=== PATIENT | male | born 1945 | race Caucasian/White ===

== ENCOUNTER 2019-09-17 21:46 | Emergency (ER) | payer OTHER, SELFPAY ==
--- NOTE | ~2019-09-17 | CT_ITS ---
EXAMINATION: CT brain wo con, CT cervical spine wo con EXAM DATE: 09/17/2019 22:15 (accession [id number]), 09/17/2019 22:16 (accession [id number]) INDICATION: Fall, loss of consciousness. Head injury. TECHNIQUE: Spiral CT of the head was performed without contrast. Axial, coronal and sagittal images were reviewed. Spiral CT of the cervical spine was performed without contrast. Axial images were rev iewed. Coronal and sagittal reformatted images were also reviewed. The dose-length product (DLP) fo r this examination was 681.00 (accession [id number]), 525.13 (accession [id number]) mGy-cm. The exposure was tailored according to patient size, and iterative reconstruction (ASIR) was used as additional dose reduction technique. There is no prior study for comparison. FINDINGS: HEAD CT: There is small acute subarachnoid hemorrhage overlying the right frontal lobe near the verte x. No other regions of acute intracranial hemorrhage. No evidence of intraparenchymal brain mass le eric. No evidence of acute infarction. There is no mass effect or midline shift. There is no obstruc tive hydrocephalus suspected. There are no extra-axial collections. There are no acute calvarial fr actures. The orbits are unremarkable. Small scalp contusion overlying the right parietal region. Th ere is moderate ethmoid periosteal thickening and probable bilateral maxillary sinus window procedure . Mastoid air cells are well aerated. CERVICAL CT: There is moderate disc disease at C5-6 and C6-7. Overall moderate cervical arthropathy. There is no evidence of acute cervical fracture. The odontoid process is intact. Pre-dens space is normal. Prevertebral soft tissue is normal. There are no soft tissue abnormalities identified. The re is no disc space widening or traumatic vertebral body subluxation suspected. A detailed level by yenny ng evaluation of spondylosis can be added as addendum if requested. IMPRESSION: 1. Small acute right frontal subarachnoid hemorrhage. 2. Small right posterior scalp contusion. 3. No acute cervical findings. Reviewed, dictated and finalized at location A. IMPRESSION: 1. Small acute right frontal subarachnoid hemorrhage. 2. Small right posterior scalp contusion. 3. No acute cervical findings.
[2019-09-17 21:44] VITALS: BP 129/76; PULSE 72; RESP 18; O2SAT 95
[2019-09-17 22:00] VITALS: BP 129/76; PULSE 75; RESP 20; O2SAT 96
[2019-09-17 22:30] VITALS: BP 120/63; PULSE 71; RESP 18; O2SAT 97
--- NOTE | 2019-09-17 22:36 | ED.FALL ---
HPI - Fall General Chief Complaint: Fall Stated Complaint: fall Time Seen by Provider: 09/17/19 21:57 History of Present Illness HPI Narrative: Patient presents with his for fall backwards. He was getting up out of his chair and fell backwards either against the door or to the wooden floor. He bumped the back of his head. She said he had a momentary loss of consciousness. He is fully oriented here. He complains of no pain. The fall was at 8 PM, at home. complaint: fall Onset (ago): hour(s) Fall from: standing Fall witnessed: no Place fall occurred: home Loss of consciousness: yes Length of LOC: second(s) Prolonged down time: no Symptoms prior to fall: none Context: history of frequent falls Location of injury: head Location of injury - extremities: Left: arm Related Data Home Medications Medication Instructions Recorded Confirmed apixaban [Eliquis] 5 mg PO BID 01/30/19 carvedilol 6.25 mg PO BID 01/30/19 clopidogrel 75 mg PO DAILY 01/30/19 escitalopram oxalate 10 mg PO DAILY 01/30/19 lisinopril 5 mg PO DAILY 01/30/19 simvastatin 40 mg PO DAILY 01/30/19 omeprazole 20 mg PO DAILY 09/17/19 tamsulosin 0.4 mg PO DAILY 09/17/19 Allergies Allergy/AdvReac Type Severity Reaction Status Date / Time amoxicillin Allergy Mild Rash Verified 01/30/19 16:19 Review of Systems Review of Systems: Narrative: CONSTITUTIONAL: Denies fever, chills, or sweats. EYES: Denies visual changes, redness, or discharge. ENT: Denies rhinorrhea, congestion, sore throat, or otalgia. CARDIOVASCULAR: Denies chest pain, palpitations, or edema. RESPIRATORY: Denies cough or dyspnea. GASTROINTESTINAL: Denies abdominal pain, nausea, vomiting, or diarrhea. GENITOURINARY: Denies dysuria or hematuria. SKIN: Denies rash or itching. MUSCULOSKELETAL: Denies back pain, he does have some left arm. NEUROLOGIC: Denies headache, numbness, or weakness. PSYCHIATRIC: Denies anxiety or depression. [facility] Past Medical History Medical History Afib Arm fracture, left Arthritis CAD (coronary artery disease) History of angina HTN (hypertension) Hyperlipidemia Rectal polyp Rib fracture Stomach ulcer UTI (urinary tract infection) Surgical History Surgical History History of cardiac catheterization History of sinus surgery Hx of CABG Social History Social History Smoking status: Former smoker Smoking end date: 02/11/96 Exam Narrative: Exam Narrative: GENERAL: Well-appearing, well-nourished, and in no acute distress. HEAD: Normocephalic, swelling on the posterior head. EYES: PERRLA and EOMI. ENT: Nares clear, no rhinorrhea or epistaxis. Mucous membranes moist. NECK: Supple. CHEST: Clear to auscultation. No respiratory distress. HEART: Regular rate and rhythm. No murmur heard. Normal peripheral pulses. ABDOMEN: Soft, nontender, nondistended, normal active bowel sounds. EXTREMITIES: Normal range of motion. No edema. 2 small bruises on the left upper inner arm. SKIN: Warm, dry, no rash. NEURO: No focal deficits. Alert and oriented x3. PSYCH: Normal mood and affect. Course Reevaluation(s) Reevaluation #1: Went back in the room to explain the subarachnoid hemorrhage to the patient and his . He is on 2 blood thinners Eliquis and Plavix. I explained the reason for giving the plasma to replace the proteins needed to stop bleeding. They agree to the transfusion. Date: 09/17/19 Time: 23:05 Consultations Consultation #1: Call the access line for [facility]. Millie will get back with us with a neurosurgeon or direct to the ER. Date: 09/17/19 Time: 22:53 Consultation #2: Millie from the [facility] access center called back. She said Dr. Carlos Marcano accepts for the ED. we will get the transportation arranged and get him over. Date: 09/18/19 Time: 00:22 Vital Signs Vital signs: Vital Signs
[2019-09-17 22:48] LABS: Basophils Percent Auto 0.6 % (0.2-1.2); Eosinophils Absolute Auto 0.2 K/mm3 (0-0.3); Eosinophils Percent Auto 3.2 % (0-4.4); Hematocrit 37.2 % (42.0-52.0); Hemoglobin 12.7 g/dL (14.0-18.0); Immature Granulocyte Absolute 0.02 K/mm3 (0.00-0.031); Immature Granulocyte Percent A 0.4 % (0-0.5); Lymphocytes Absolute Auto 1.28 K/mm3 (0.9-3.2); Mean Corpuscular HGB Conc 34.1 g/dl (32-36); Mean Corpuscular Hemoglobin 31.3 pg (26-34); Mean Corpuscular Volume 91.6 fl (80-100); Mean Platelet Volume 10.2 fl (7.4-10.4); Monocytes Absolute Auto 0.6 K/mm3 (0.1-0.6); Monocytes Percent Auto 13.1 % (2.6-8.5); Neutrophils Absolute Auto 2.6 K/mm3 (1.3-6.7); Neutrophils Percent Auto 55.7 % (45.5-73.1); Platelet Count Result 162 k/mm3 (150-375); Red Blood Count 4.06 M/mm3 (4.6-6.20); Red Cell Distribution Width 12.5 % (11.5-14.5); White Blood Count 4.7 K/mm3 (4.5-10.0)
[2019-09-17 22:58] LABS: INR 1.3; Prothrombin Time 16.2 Seconds (11.1-14.7)
[2019-09-17 23:00] VITALS: BP 119/56; PULSE 64; RESP 16; O2SAT 95
[2019-09-17 23:01] LABS: Alanine Aminotransferase 18 U/L (4-50); Albumin Level 3.9 g/dL (3.5-5.1); Alkaline Phosphatase 55 U/L (38-126); Anion Gap 11 mmol/L (8-16); Aspartate Amino Transferase 27 U/L (17-59); Bilirubin,Total 0.4 mg/dL (0.2-1.3); Blood Urea Nitrogen 12 mg/dL (9-20); Calcium 9.1 mg/dL (8.4-10.2); Carbon Dioxide 21 mmol/L (22-30); Chloride 107 mmol/L (98-107); Estimated Glomerular Filt Rate > 60; Glucose 140 mg/dL (75-110); Potassium 3.6 mmol/L (3.4-5.0); Sodium 139 mmol/L (137-145)
[2019-09-17 23:30] VITALS: BP 111/50; PULSE 63; RESP 16; O2SAT 95
[2019-09-17] MEDS: SODIUM CHLORIDE 0.9% IV 250 ML 30 ML IV CONT (23:57)
[2019-09-18] VITALS: BP 105/51; PULSE 63; RESP 16; O2SAT 96
[2019-09-18 00:30] VITALS: BP 102/52; PULSE 61; RESP 15; O2SAT 95
[2019-09-18 02:37] VITALS: BP 133/67; PULSE 53; RESP 14; TEMP 36.5; O2SAT 99
[2019-09-18] MEDS: TUBING, BLOOD SET 1 EACH XX (02:40)
[2019-09-18 02:59] VITALS: BP 123/56; PULSE 59; RESP 15; TEMP 36.6; O2SAT 98
[2019-09-18 03:15] VITALS: BP 136/56; PULSE 55; RESP 15; TEMP 36.6; O2SAT 98
== END 2019-09-18 03:35 | disposition short-term general hospital (02) ==
PROVIDERS: Emergency Provider Emergency Medicine; PCP Family Medicine
DX: S06.6X1A Traumatic subarachnoid hemorrhage with loss of consciousness of 30 minutes or less, initial encounter (principal); I48.91 Unspecified atrial fibrillation; Z79.01 Long term (current) use of anticoagulants; M19.90 Unspecified osteoarthritis, unspecified site; I25.10 Atherosclerotic heart disease of native coronary artery without angina pectoris; I10 Essential (primary) hypertension; E78.5 Hyperlipidemia, unspecified; Z87.19 Personal history of other diseases of the digestive system; Z87.440 Personal history of urinary (tract) infections; Z95.1 Presence of aortocoronary bypass graft; Z87.891 Personal history of nicotine dependence; Z79.02 Long term (current) use of antithrombotics/antiplatelets; W07.XXXA Fall from chair, initial encounter
CPT/HCPCS: 36415; 36430; 70450; 72125; 80053; 85025; 85610; 86850; 86900; 86901; 96360; 96361; 99291; J0153; J7050; L0140; P9017

== ENCOUNTER 2020-07-20 08:48 | Emergency (ER) | payer OTHER, SELFPAY ==
[2020-07-20 08:58] VITALS: BP 146/62; PULSE 61; RESP 16; TEMP 36.6; O2SAT 99
--- NOTE | 2020-07-20 09:04 | ED.EAR ---
HPI - Ear Problem General Chief complaint: Ear Stated complaint: ear clogged Time Seen by Provider: 07/20/20 09:00 Source: patient Mode of arrival: ambulatory Limitations: no limitations History of Present Illness HPI Narrative: Álvaro Cedeno is a74 yo male with a PMH of hypertension, A. fib, chronic anticoagulation, depression, GERD, high cholesterol, BHP, comes to the [facility] is complaining of difficulty hearing. He has old wax in both ears that he ihas not tried to remove nor has he used any kind of eardrops to loosen wax up. Related Data Home Medications Medication Instructions Recorded Confirmed apixaban [Eliquis] 10 mg PO DAILY 07/20/20 07/20/20 carvedilol [Coreg] 12.5 mg PO DAILY 07/20/20 07/20/20 clopidogrel [Plavix] 75 mg PO DAILY 07/20/20 07/20/20 escitalopram oxalate [Lexapro] 10 mg PO DAILY 07/20/20 07/20/20 lisinopril [Zestril] 5 mg PO DAILY 07/20/20 07/20/20 omeprazole [Prilosec] 20 mg PO DAILY 07/20/20 07/20/20 simvastatin [Zocor] 40 mg PO DAILY 07/20/20 07/20/20 tamsulosin [Flomax] 0.4 mg PO DAILY 07/20/20 07/20/20 Allergies Allergy/AdvReac Type Severity Reaction Status Date / Time amoxicillin Allergy Mild Rash Verified 07/20/20 09:10 Review of Systems Review of Systems: Narrative: CONSTITUTIONAL: Denies fever, chills, sweats. EYES: Denies visual changes, redness, discharge. ENT: Denies rhinorrhea, congestion, sore throat, bilateral difficulty hearing CARDIOVASCULAR: Denies chest pain, palpitations, edema. RESPIRATORY: Denies dyspnea, wheezing, cough GASTROINTESTINAL: Denies abdominal pain, nausea, vomiting, diarrhea. GENITOURINARY: Denies dysuria, hematuria, abnormal discharge SKIN: Denies rash or itching. NEUROLOGIC: Denies numbness, or focal weakness. PSYCHIATRIC: Denies anxiety or depression. [facility] Past Medical History Medical History Afib Arm fracture, left Arthritis CAD (coronary artery disease) History of angina HTN (hypertension) Hyperlipidemia Rectal polyp Rib fracture Stomach ulcer UTI (urinary tract infection) Surgical History Surgical History History of cardiac catheterization History of sinus surgery Hx of CABG Family History Family History Mother Heart disease Father COPD (chronic obstructive pulmonary disease) Sibling Cancer Sibling Heart disease Sibling COPD (chronic obstructive pulmonary disease) Social History Social History Smoking status: Former smoker Smoking end date: 02/11/96 Alcohol intake: current Drinks per week: 3 Substance use: never Gender identity (if verbalized by the patient): Male Comments At time of signature, I agree with nursing past medical, surgical, social and family history. There is no relevant family history pertinent to the presenting complaint. Exam Narrative: Exam Narrative: GENERAL: This is a well-nourished, well-developed patient, in mild distress. HEAD: normocephalic, atraumatic. EYES: Sclera clear/white. Vision is grossly intact. EARS: External ears normal, auditory canals occluded with cerumen and without drainage, TMs not visible. Hearing grossly intact. NOSE: External nose normal without nasal discharge, nares without redness, no rhinorrhea. THROAT: Mucous membranes moist, NECK: Neck supple, non-tender CARDIOVASCULAR: Regular rate and rhythm without murmurs, gallops, or rubs. RESPIRATORY: Clear to auscultation. Breath sounds equal bilaterally. No wheezes, rales, or rhonchi. GASTROINTESTINAL: Abdomen soft, SKIN: warm, intact with no suspicious lesions or rash, good texture and turgor. NEURO: awake, alert, and oriented to person, place and time. There were no obvious focal neurologic abnormalities. Steady gait EXTREMITIES: Normal range
== END 2020-07-20 09:48 | disposition home or self-care (01) ==
PROVIDERS: Emergency Provider Nurse Practitioner
DX: H61.23 Impacted cerumen, bilateral (principal); Z87.891 Personal history of nicotine dependence; I48.91 Unspecified atrial fibrillation; M19.90 Unspecified osteoarthritis, unspecified site; I10 Essential (primary) hypertension; E78.5 Hyperlipidemia, unspecified; I25.110 Atherosclerotic heart disease of native coronary artery with unstable angina pectoris; Z95.1 Presence of aortocoronary bypass graft
CPT/HCPCS: 69209; 99213; A9270; G0463

== ENCOUNTER 2020-07-22 15:11 | Emergency (ER) | payer OTHER, SELFPAY ==
[2020-07-22 15:27] VITALS: BP 136/62; PULSE 60; RESP 18; TEMP 36.4; O2SAT 96
--- NOTE | 2020-07-22 16:38 | ED.GENADULT ---
HPI - General Adult General Chief complaint: Unspecified Stated complaint: cant hear out of both ears Time Seen by Provider: 07/22/20 16:38 History of Present Illness HPI narrative: Progressive hearing loss in both ears. Seen at and given prescription for drops to clear ear wax. No significant improvement. Related Data Home Medications Medication Instructions Recorded Confirmed apixaban [Eliquis] 10 mg PO DAILY 07/20/20 07/20/20 carvedilol [Coreg] 12.5 mg PO DAILY 07/20/20 07/20/20 clopidogrel [Plavix] 75 mg PO DAILY 07/20/20 07/20/20 escitalopram oxalate [Lexapro] 10 mg PO DAILY 07/20/20 07/20/20 lisinopril [Zestril] 5 mg PO DAILY 07/20/20 07/20/20 omeprazole [Prilosec] 20 mg PO DAILY 07/20/20 07/20/20 simvastatin [Zocor] 40 mg PO DAILY 07/20/20 07/20/20 tamsulosin [Flomax] 0.4 mg PO DAILY 07/20/20 07/20/20 Allergies Allergy/AdvReac Type Severity Reaction Status Date / Time amoxicillin Allergy Mild Rash Verified 07/20/20 09:10 Review of Systems Constitutional: Constitutional: Denies fever(s) Eyes: Eyes: Denies change in vision ENT: Denies dizziness and Denies sore throat Cardiovascular: Cardiovascular: Denies chest pain Respiratory: Respiratory: Denies dyspnea Neurologic: Denies Abnormal speech present and Denies headache(s) [facility] Past Medical History Medical History Afib Arm fracture, left Arthritis CAD (coronary artery disease) History of angina HTN (hypertension) Hyperlipidemia Rectal polyp Rib fracture Stomach ulcer UTI (urinary tract infection) Surgical History Surgical History History of cardiac catheterization History of sinus surgery Hx of CABG Family History Family History Mother Heart disease Father COPD (chronic obstructive pulmonary disease) Sibling Cancer Sibling Heart disease Sibling COPD (chronic obstructive pulmonary disease) Social History Social History Smoking status: Former smoker Smoking end date: 02/11/96 Alcohol intake: current Drinks per week: 3 Substance use: never Gender identity (if verbalized by the patient): Male Exam Const: General: healthy appearing and no acute distress Nutritional Appearance: well nourished Orientation/consciousness: patient oriented x3 HENMT: Ears: Abnormal EAC present cerumen impaction bilateral Eyes: Pupils: Equal, round and reactive pupils present EOM: EOMs intact bilaterally Neck: Neck: normal visual inspection and no lymphadenopathy Resp: Effort & Inspection: normal respiratory effort Auscultation: clear to auscultation bilaterally Cardio: Rate: regular rate Rhythm: regular rhythm Skin: General skin exam: normal color Neuro: General: patient oriented x3 Cranial nerves: Yes CN's II-XII intact bilaterally, Yes Equal, round and reactive pupils present and Yes facial symmetry Gait exam (Neuro): Normal gait present Course Vital Signs Vital signs: Vital Signs Temperature 36.4 C L 07/22/20 15:27 Pulse Rate 60 07/22/20 15:27 Respiratory Rate 18 07/22/20 15:27 Blood Pressure 136/62 07/22/20 15:27 Pulse Oximetry 96 07/22/20 15:27 Temperature 36.4 C L 07/22/20 15:27 Pulse Rate 60 07/22/20 15:27 Respiratory Rate 18 07/22/20 15:27 Blood Pressure 136/62 07/22/20 15:27 Pulse Oximetry 96 07/22/20 15:27 Procedures Ear Wax Removal Both Ears: Cerumenolytic Used: other Results: Re-examined: cerumen removed completely and some cerumen remains TM Examination: TM(s) intact, normal appearance Patient Tolerated Procedure: well Complications: no problems Medical Decision Making MDM Narrative Medical decision making narrative: Hearing improved after procedure Vital Signs
[2020-07-22] MEDS: HYDROGEN PEROXIDE 3% SOLN(*SP) 473 ML BOTTLE (17:07)
== END 2020-07-22 17:43 | disposition home or self-care (01) ==
PROVIDERS: Emergency Provider Emergency Medicine; PCP Internal Medicine
DX: H61.23 Impacted cerumen, bilateral (principal); I48.91 Unspecified atrial fibrillation; I25.10 Atherosclerotic heart disease of native coronary artery without angina pectoris; I10 Essential (primary) hypertension; E78.5 Hyperlipidemia, unspecified; M19.90 Unspecified osteoarthritis, unspecified site; Z87.19 Personal history of other diseases of the digestive system; Z87.440 Personal history of urinary (tract) infections; Z79.02 Long term (current) use of antithrombotics/antiplatelets; Z79.01 Long term (current) use of anticoagulants; Z95.1 Presence of aortocoronary bypass graft; Z87.891 Personal history of nicotine dependence
CPT/HCPCS: 69209; 69210; 99282; A9270

== ENCOUNTER → 2021-03-01 07:52 | Outpatient (CLI) | payer OTHER, SELFPAY ==
[2021-03-01 14:41] LABS: Influenza A QL RT-PCR Negative (Negative); Influenza B QL RT-PCR Negative (Negative)
[2021-03-01 21:12] LABS: SARS-CoV-2 RNA PCR Positive
== END ==
PROVIDERS: PCP Internal Medicine; Visit Provider Internal Medicine
DX: U07.1 COVID-19 (principal)
CPT/HCPCS: 87502; C9803; U0003; U0005

== ENCOUNTER 2021-12-13 14:30 | Outpatient (CLI) | payer OTHER, SELFPAY ==
--- NOTE | ~2021-12-13 | MR_ITS ---
EXAMINATION: MR brain/brain stem wo con DATE: 12/13/2021 15:16 INDICATION: Amnesia. TECHNIQUE: Magnetic resonance imaging (MRI) of the brain and brainstem was performed without intraven ous contrast. COMPARISON: Head CT 09/17/2019 FINDINGS: There are scattered areas of nonspecific increased T2-weighted signal intensity in the cere bral white matter. There is no intracranial hemorrhage, acute infarction, or abnormal intracranial ma ss lesion. The ventricles are normal in size. There is mucosal thickening in the paranasal sinuses. T here are likely changes of ocular lens replacement surgeries. The mastoid air cells are normal. IMPRESSION: 1. Mild nonspecific cerebral white matter disease, which likely represents chronic small vessel ische jeff disease. Reviewed, dictated and finalized at location A. IMPRESSION: 1. Mild nonspecific cerebral white matter disease, which likely represents machine wiper shaina small vessel ischemic disease.
== END 2021-12-13 14:31 | disposition home or self-care (01) ==
PROVIDERS: PCP Internal Medicine; Visit Provider Internal Medicine
DX: R41.3 Other amnesia (principal); R90.82 White matter disease, unspecified
CPT/HCPCS: 70551

== ENCOUNTER 2022-06-14 10:28 | Emergency (ER) | payer OTHER, SELFPAY ==
--- NOTE | ~2022-06-14 | XR_ITS ---
EXAMINATION: [id number] DATE: 06/14/2022 11:57 INDICATION: Right posterior rib pain. Fall. TECHNIQUE: A frontal view of the chest and 2 views on 3 radiographs of the right ribs were obtained. COMPARISON: Chest radiograph 09/03/2017 FINDINGS: There is mild scarring in right upper lobe. No pleural effusion or pneumothorax. The heart size is normal. Median sternotomy wires and mediastinal surgical clips are seen, likely from prior co ronary artery bypass grafting. IMPRESSION: 1. No rib fracture. 2. Stable mild scarring in right upper lobe. Reviewed, dictated and finalized at location A.
--- NOTE | ~2022-06-14 | CT_ITS ---
EXAMINATION: CT abdomen pelvis w con DATE: 06/14/2022 14:16 INDICATION: Right flank tenderness after trauma TECHNIQUE: Computed tomography (CT) of the abdomen and pelvis was performed with 100 mL Omnipaque-350 intravenous contrast. Automated exposure control and iterative reconstruction technique were employe d. The dose-length product was 745.96 mGy-cm. COMPARISON: 08/27/2016 FINDINGS: Mild lingular atelectasis. Heart size is normal. Atherosclerotic coronary artery calcification. Castañeda otomy wires likely related to prior coronary artery bypass grafting. No pericardial or pleural effusi on. Multiple hepatic and splenic calcifications consistent with old granulomatous disease. Gallbladde r, pancreas, bilateral adrenal glands and left kidney are normal. 3 mm nonobstructing stone at a lowe r pole calyx of the right kidney. No ureteral stones or hydronephrosis. Prominent diverticulosis with a descending and sigmoid colon predominance in without adjacent inflammatory stranding to suggest di verticulitis. Small bowel and appendix are normal. Prostatomegaly. No free intraperitoneal gas or flu id. No pathologically enlarged abdominal or pelvic lymphadenopathy. Unchanged 1 cm lytic lesion at th e right side of the L3 vertebral body which given the interval stability is most consistent with a he mangioma. Mild lumbar levocurvature with interval progression of moderate to severe lumbar spondylosi s. No acute osseous abnormality. IMPRESSION: 1. No acute osseous abnormality or acute intra-abdominal/pelvic process. 2. Nonobstructing 3 mm right renal stone. 3. Prominent diverticulosis. 4. Prostatomegaly. Reviewed, dictated and finalized at location B.
[2022-06-14 10:39] VITALS: BP 149/68; PULSE 64; RESP 14; TEMP 36.3; O2SAT 97
--- NOTE | 2022-06-14 11:29 | PC.NURSE ---
c/o r flank pain x 2 days. denies any injury or problems with urination. took tylenol and aleve without any relief. states pain worse with movement.
--- NOTE | 2022-06-14 11:48 | ED.BACK ---
HPI - Back Pain/Injury General Chief Complaint: Back Pain/Injury Stated Complaint: right lower abd pain Time Seen by Provider: 06/14/22 11:31 History of Present Illness HPI Narrative: Patient is a 76-year-old male here for evaluation of right-sided rib pain x2 days. Patient states that he sustained a mechanical fall 2 days ago and did strike the right side of his thorax against the ground. Since the fall he has developed a gradual pain in his right side, worse with certain movements and possibly with cough. He has taken Tylenol and ibuprofen with transient relief of his symptoms. He states he was unable to cough today due to the pain which prompted his ED evaluation. He denies any shortness of breath, chest pain, nausea, vomiting. Related Data Home Medications Medication Instructions Recorded Confirmed magnesium hydroxide 400 mg (170 mg mg PO DAILY 08/31/20 01/17/22 magnesium) chewable tablet psyllium husk 0.4 gram capsule 0.4 g PO DAILY 08/31/20 01/17/22 (Daily Fiber) apixaban 5 mg tablet (Eliquis) 5 mg PO BID 03/27/21 01/17/22 donepezil 10 mg tablet 10 mg PO QHS 01/17/22 01/17/22 Allergies Allergy/AdvReac Type Severity Reaction Status Date / Time amoxicillin Allergy Mild Rash Verified 06/14/22 10:29 Review of Systems Review of Systems: Gen: Denies fevers or chills Eyes: Denies eye pain or visual change ENT: Denies congestion Respiratory: Denies shortness of breath or cough CV: Denies chest pain or palpitations GI: Denies abdominal pain nausea, emesis or diarrhea : denies burning, urgency, frequency or hematuria Musculoskeletal: Reports right-sided rib pain Neuro: Denies numbness, tingling, weakness or focal weakness Skin: Denies rash Except as documented, all other systems reviewed and negative [facility] Past Medical History Medical History Afib Arm fracture, left Arthritis CAD (coronary artery disease) COVID-19 History of angina HTN (hypertension) Hyperlipidemia Rectal polyp Rib fracture Stomach ulcer UTI (urinary tract infection) Surgical History Surgical History History of cardiac catheterization History of sinus surgery Hx of CABG Family History Family History Mother Heart disease Father COPD (chronic obstructive pulmonary disease) Asthma Sibling Cancer Sibling Heart disease Sibling COPD (chronic obstructive pulmonary disease) Social History Social History (Updated 01/17/22 @ 13:42 by GISEL Quiles) Smoking packs per day: 1 Smoking cigarettes per day: 20.0 Years smoked: 15 Smoking pack-years: 15.00 Smoking status: Former smoker Smoking end date: 02/11/96 Alcohol intake: current Drinks per week: 3 Alcohol use details: beer- 3 cans once or twice a week Substance use: never Substance use type: does not use Lack of Transportation: No Lack of Food: Never True Current Housing: I Have Housing Concerned About Future Housing: No Difficulty Paying Gas/Electric Bills: No Difficulty Paying for Meds: No Currently Unemployed: No Education: High School Diploma/GED Difficulty w/ Childcare or Family Care: No Living arrangements: with family Occupation/Education: retired Gender identity (if verbalized by the patient): Male Sexual Orientation (if Verbalized by the Patient): Straight or Heterosexual Exam Narrative: APPEARANCE: No acute distress, nontoxic, resting in bed EYES: EOMI HEENT: Normocephalic, atraumatic, OMM RESPIRATORY: No respiratory distress Clear to auscultation bilaterally with no rhonchi wheezing or rales. CARDIOVASCULAR: Regular rate and rhythm without murmurs rubs or gallops. ABDOMINAL: Soft, nontender, nondistended, no rebound or guarding MUSCULOSKELETAl: There is tenderness to
[2022-06-14] MEDS: methocarbamoL 500 MG TABLET PO (11:58)
[2022-06-14] MEDS: LIDOCAINE 5% PATCH 1 PATCH TRANSDERM (11:58)
[2022-06-14 12:54] LABS: Basophils Percent Auto 0.5 % (0.2-1.2); Eosinophils Absolute Auto 0.2 K/mm3 (0-0.3); Eosinophils Percent Auto 2.6 % (0-4.4); Hematocrit 38.8 % (42.0-52.0); Hemoglobin 13.3 g/dL (14.0-18.0); Immature Granulocyte Absolute 0.01 K/mm3 (0.00-0.031); Immature Granulocyte Percent A 0.2 % (0-0.5); Lymphocytes Absolute Auto 1.49 K/mm3 (0.9-3.2); Lymphocytes Percent Auto 23.2 % (18.3-44.2); Mean Corpuscular HGB Conc 34.3 g/dl (32-36); Mean Corpuscular Hemoglobin 30.8 pg (26-34); Mean Corpuscular Volume 89.8 fl (80-100); Mean Platelet Volume 10.1 fl (7.4-10.4); Monocytes Absolute Auto 0.7 K/mm3 (0.1-0.6); Monocytes Percent Auto 10.6 % (2.6-8.5); Neutrophils Absolute Auto 4.1 K/mm3 (1.3-6.7); Neutrophils Percent Auto 62.9 % (45.5-73.1); Platelet Count Result 198 k/mm3 (150-375); Red Blood Count 4.32 M/mm3 (4.6-6.20); Red Cell Distribution Width 12.8 % (11.5-14.5); White Blood Count 6.4 K/mm3 (4.5-10.0)
[2022-06-14 13:00] LABS: Appearance Urine Clear (Clear); Bacteria Urine None Seen /hpf; Bilirubin Urine Negative (Negative); Blood Urine Negative (Negative); Color Urine Dark Yellow (Yellow); Glucose Urine UA Negative (Negative); Ketones Urine Trace mg/dL (Negative); Leukocyte Esterase Ur Negative LEU/UL (Negative); Nitrate Urine Negative (Negative); Non Pathogenic Casts 0-2; Protein Urine Trace mg/dL (Negative); RBC Urine 0-2 /hpf (0-2); Squamous Epithelial Cell Urine None seen /hpf (Few); WBC Urine 0-5 /hpf; pH Urine 5.5 (5.0-9.0)
[2022-06-14 13:07] LABS: Specific Grav Ur 1.038 (1.001-1.035)
[2022-06-14 13:08] LABS: INR 1.3; Prothrombin Time 16.7 Seconds (11.1-14.7)
[2022-06-14 13:09] LABS: Partial Thromboplastin Time 25.9 SECONDS (22.3-36.8)
[2022-06-14 13:11] LABS: Add Urine Microscopic? YES
[2022-06-14 13:25] LABS: Alanine Aminotransferase 22 U/L (6-50); Albumin Level 4.4 g/dL (3.5-5.1); Alkaline Phosphatase 74 U/L (38-126); Anion Gap 8 mmol/L (8-16); Aspartate Amino Transferase 32 U/L (17-59); Bilirubin,Total 0.6 mg/dL (0.2-1.3); Blood Urea Nitrogen 16 mg/dL (9-20); Calcium 9.4 mg/dL (8.4-10.2); Carbon Dioxide 28 mmol/L (22-30); Chloride 105 mmol/L (98-107); Estimated CRCL calculation 84 ml/min; Estimated Glomerular Filt Rate > 60; Glucose 103 mg/dL (65-110); Potassium 3.9 mmol/L (3.4-5.0); Sodium 141 mmol/L (137-145)
== END 2022-06-14 15:17 | disposition home or self-care (01) ==
PROVIDERS: Emergency Provider Physician Assistant; PCP Family Medicine
DX: S29.9XXA Unspecified injury of thorax, initial encounter (principal); I48.91 Unspecified atrial fibrillation; I25.10 Atherosclerotic heart disease of native coronary artery without angina pectoris; I10 Essential (primary) hypertension; E78.5 Hyperlipidemia, unspecified; Z95.1 Presence of aortocoronary bypass graft; M19.90 Unspecified osteoarthritis, unspecified site; Z86.16 Personal history of COVID-19; Z87.19 Personal history of other diseases of the digestive system; Z87.891 Personal history of nicotine dependence; Z87.440 Personal history of urinary (tract) infections; Z79.01 Long term (current) use of anticoagulants; W06.XXXA Fall from bed, initial encounter
CPT/HCPCS: 36415; 71101; 74177; 80053; 81001; 85025; 85610; 85730; 99284; A9270; Q9967

== ENCOUNTER → 2022-11-12 12:52 | Outpatient (CLI) | payer OTHER, SELFPAY ==
--- NOTE | ~2022-11-12 | DEXA_ITS ---
Bone Density Report Name: KAL BERNAL Age: 77 Sex: Male Ethnicity: White Date of : 1945 Indication: screening for osteoporosis; Referring Provider: EMMA GOTTI Study: Bone densitometry was performed. Exam Date: November 12, 2022 Accession number: [id number] Bone Density: Region BMD T-score Z-score Classification AP Spine (L1-L4) 1.534 4.0 5.2 Normal Femoral Neck (Left) 0.848 -0.6 0.9 Normal Total Hip (Left) 1.142 0.7 1.7 Normal Femoral Neck (Right) 0.803 -0.9 0.5 Normal Total Hip (Right) 1.107 0.5 1.5 Normal Total Hip Mean 1.125 0.6 1.6 Normal World Health Organization criteria for BMD impression classify patients as: Normal (T-score at or above -1.0), Osteopenia (T-score between -1.0 and -2.5), or Osteoporosis (T-score at or below -2.5). 10-year Fracture Risk: FRAX not reported because: All T-scores for Spine Total, Hip Total, Femoral Neck at or above -1.0 Clinical Information Provided by Patient: Has used the following medications: Vitamin D, Calcium, MTV Patient maximum height was 70.0 Drinks caffeinated beverages Impression: The patient has normal bone mass. Discussion: BONE DENSITY IS ABOVE THE MINIMUM DESIRABLE LEVEL AT ALL SKELETAL SITES TESTED. This patient?s bone mineral density is above the minimum desirable level (T-score -1.0 or better) at all sites measured. The patient should follow a healthful lifestyle (good nutrition with adequate calcium and vitamin D, and appropriate weight-bearing exercise). Follow-Up: Consider repeating this study in 5 years or sooner if there is some new clinical indication. Reported by: [facility] on 11/12/2022 1:20:00 PM. Reviewed, dictated and finalized at location [place] [facility]
== END ==
PROVIDERS: PCP Family Medicine; Visit Provider Family Medicine
DX: M85.88 Other specified disorders of bone density and structure, other site (principal)
CPT/HCPCS: 77080

== ENCOUNTER 2023-09-25 08:30 | Outpatient (CLI) | payer OTHER, SELFPAY ==
--- NOTE | ~2023-09-25 | CT_ITS ---
EXAMINATION: CT abdomen pelvis wo/w con DATE: 09/25/2023 09:21 INDICATION: Gross hematuria. TECHNIQUE: Computed tomography (CT) of the abdomen and pelvis was performed without and with intraven ous contrast using a total of 130 mL Omnipaque-350 intravenous contrast with a double-bolus technique for simultaneous opacification of the renal parenchyma and renal collecting system. Automated exposu re control and iterative reconstruction technique were employed. The dose-length product was 1444.94 mGy-cm. COMPARISON: None FINDINGS: The visualized portions of the lung bases demonstrate mild atelectasis. No pleural effusion. The hear t size is normal. There are coronary artery calcifications. No pericardial effusion. Calcifications i n the liver and spleen are consistent with old granulomatous disease. The gallbladder, pancreas, and adrenal glands, and left kidney are normal. There are two 1 mm stones in right kidney. There is a 5 m m stone in distal right ureter. No hydronephrosis. The ureters are suboptimally opacified by contrast . The bladder is decompressed. The prostate is moderately enlarged. There is diverticulosis of the co john without evidence of diverticulitis. There are no dilated loops of bowel. The appendix is normal. There are no pathologically enlarged lymph nodes. There is no free intraperitoneal fluid. There is se lalo lumbar spondylosis. IMPRESSION: 1. 5 mm stone in distal right ureter. No hydronephrosis. 2. Two 1 mm nonobstructing right kidney stones. Reviewed, dictated and finalized at location A.
--- NOTE | ~2023-09-25 | XR_ITS ---
EXAMINATION: XR abdomen/kub 1V DATE: 09/25/2023 08:52 INDICATION: Gross hematuria. TECHNIQUE: A supine view of the abdomen on 2 radiographs was obtained. COMPARISON: CT abdomen and pelvis 09/25/2023 FINDINGS: There are no dilated loops of bowel. There is a 5 mm stone in distal right ureter. There ar e phleboliths in the pelvis. There are surgical clips in left upper quadrant. Median sternotomy wires are noted. IMPRESSION: 1. 5 mm stone in distal right ureter. Reviewed, dictated and finalized at location A.
[2023-09-25 09:06] LABS: Estimated Glomerular Filt Rate > 60
== END 2023-09-25 08:31 | disposition home or self-care (01) ==
PROVIDERS: PCP Family Medicine; Visit Provider Urology
DX: R31.0 Gross hematuria (principal); N20.0 Calculus of kidney; N20.1 Calculus of ureter
CPT/HCPCS: 74018; 74178; Q9967

== ENCOUNTER 2023-10-01 11:09 | Outpatient (CLI) | payer OTHER, SELFPAY ==
--- NOTE | ~2023-10-01 | XR_ITS ---
XR abdomen/kub 1V Ordering provider: Jorge Peres MD History: . R ureteral stone follow up . Comparison: September 25, 2023 FINDINGS: BOWEL: Nonobstructive bowel gas pattern. ORGANOMEGALY: None. SIGNIFICANT PATHOLOGIC CALCIFICATIONS: Calcific shadow in the right side of the pelvis is unchanged. OTHER: No free air is seen under the diaphragm. Degenerative changes of the spine. IMPRESSION: NO ACUTE ABDOMINAL FINDINGS. Calcific shadow in the right side of the pelvis. Reviewed, dictated and finalized at location A.
== END 2023-10-01 11:10 ==
LOC: MICIMG 11:11
PROVIDERS: PCP Family Medicine; Visit Provider Urology
DX: N20.1 Calculus of ureter (principal)
CPT/HCPCS: 74018

== ENCOUNTER 2023-10-09 07:56 | Outpatient (CLI) | payer OTHER, SELFPAY ==
--- NOTE | 2023-10-09 08:05 | ECG_ITS ---
Test Date: 2023-10-09 08:10:40 Measurements Intervals [place] Rate: 67 P: 1 IA: 171 QRS: 58 QRSD: 101 T: 32 QT: 344 QTc: 365 Interpretive Statements SINUS RHYTHM WITH OCCASIONAL VENTRICULAR PREMATURE COMPLEXES NONSPECIFIC T-WAVE ABNORMALITY BORDERLINE ECG No previous ECG available for comparison Electronically Signed On 10-09-2023 13:22:26 CDT by Benito Milan M.D.
== END 2023-10-09 07:57 | disposition home or self-care (01) ==
PROVIDERS: PCP Family Medicine; Visit Provider Urology
DX: Z01.818 Encounter for other preprocedural examination (principal); I48.91 Unspecified atrial fibrillation; I49.3 Ventricular premature depolarization
CPT/HCPCS: 93005

== ENCOUNTER 2023-10-14 00:24 | Day surgery (SDC) | payer OTHER, SELFPAY ==
[2023-10-08 15:13] VITALS: BMI 29.0
--- NOTE | 2023-10-08 15:36 | PC.NURSE ---
Report to the Outpatient Waiting Room, entrance under the green pavilion located off [facility], at time _7:00AM__ on date _10/14/23__. Planned Procedure Time: __9:00AM .? Time changes happen often and if your time is changed the preop area will call you the afternoon before. - You and your visitor will be asked to self-screen and do not enter if you have any COVID symptoms. Please call surgeon if you need to reschedule. - A mask is optional within the hospital at this time. Patients may have clear liquids (water, carbonated beverages, clear teas, apple juice) until 3 hours prior to surgery with a maximum of 20 ounces. - No food from midnight until time of surgery and no smoking. Take only the following medications with a SIP of water on the morning of surgery: ___CARVEDILOL, ESCITALOPRAM DO NOT STOP ANY OF YOUR OTHER PRESCRIPTION MEDICATIONS PRIOR TO SURGERY EXCEPT THE FOLLOWING Medications to discontinue per physician ____HOLD ELIQUIS 5 DAYS PRE-OP PER DR MÉNDEZ- LAST DOSE 10/08/23 HOLD ALL VITAMINS/SUPPLEMENTS 3 DAYS PRE-OP- LAST DOSE 10/10/23. Please no make-up, nail serbian, hairspray, perfume, deodorant, or body powder the day of surgery.? No jewelry (including any body piercings) or valuables the day of surgery, leave them at home.? Please take a shower or bath the night before, or the morning of, surgery with an antibacterial soap.? Wear comfortable, loose fitting clothing. - Jewelry must be removed prior to entering the operating room.? Rings and piercings that are not removed may be cut off. - The hospital will not accept responsibility for valuables.? - Please leave all valuables, including medications, at home the day of surgery. If you are going home after surgery, a licensed driver operator must drive you home.? - NO public transportation without another adult if you receive anesthesia. - We recommend that an adult stay with you for 24 hours following discharge. - We also recommend that you do not drive, make important decision, drink alcoholic beverages, or take any drugs that were not prescribed by your health care provider for at least 24 hours after your discharge time. Follow any additional instructions given to you from your surgeon. Telephone instructions given to __PATIENT'S -KEVAN and asked if any additional questions and then verbalized understanding. Patient advised to call surgeon office or pre surgery nurse liaison [phone] if any additional questions.
[2023-10-14] VITALS (7 sets, daily range): BP systolic 95–186; BP diastolic 50–84; PULSE 55–74; RESP 12–18; TEMP 36.4; O2SAT 97–100; BMI 28.8
--- NOTE | ~2023-10-14 | CT_ITS ---
Non-contrast CT scan of the Abdomen and Pelvis Clinical indication: Right ureteral stone Technique: 2.5 mm axial scans were obtained through the abdomen and pelvis without intravenous or or al contrast. Dose reduction technique was used on this scan by utilizing automated exposure control a nd iterative reconstruction technique. The dose-length product (DLP) was 295.58 mGy-cm. COMPARISON: 09/25/2023 Findings: Images through the lung bases reveal no abnormalities. Stable 4 mm distal right ureteral stone. No right hydronephrosis. No other renal or ureteral stones e vident. The liver, pancreas, gallbladder, and adrenals appear normal. Calcified splenic granulomas are presen t. There are atherosclerotic calcifications of the aorta. . There is no evidence of bowel obstruction. Images through the pelvis were performed. There is no evidence of ascites or lymphadenopathy. Urinary bladder unremarkable. No pelvic mass seen. Impression: Stable 4 mm distal right ureteral stone. No hydronephrosis. Reviewed, dictated and finalized at [facility]. Impression: Stable 4 mm distal right ureteral stone. No hydronephrosis.
--- NOTE | ~2023-10-14 | XR_ITS ---
EXAMINATION: XR retrograde pyelo w/stent RT DATE: 10/14/2023 09:32 INDICATION: Right internal ureteral stent placement TECHNIQUE: Fluoroscopic images from a right internal ureteral stent placement are submitted for lyn bryan 12 seconds of fluoroscopy time. 4 fluoroscopic images FINDINGS: There is a right double-J internal ureteral stent projecting in expected position, with proximal [place] loop at the level of the renal pelvis. The distal cope loop is not visualized.. IMPRESSION: 1. Right internal ureteral stent placement. Please refer to real-time procedural findings for chris cruz. Reviewed, dictated and finalized at location B. IMPRESSION: 1. Right internal ureteral stent placement. Please refer to real-time procedu ral findings for details.
[2023-10-14] MEDS: LACTATED RINGERS 1,000 ML 30 ML IV CONT (07:25)
[2023-10-14 07:35] LABS: Glucose Point of Care 140 mg/dl (65-105)
--- NOTE | 2023-10-14 08:34 | WPDANESEPPF ---
Anes - Initial Pre Proc Eval Procedure: Operation Date: 10/14/23 09:00 Proposed Procedures p Cystoscopy, Right Ureteroscopy, Possible Right Retrograde Pyelogram, Possible Right Stone Extraction, Possible Right Stent Placement, Possible Holmium Laser Procedure - Jorge Peres MD Date/Time: 10/14/23 08:34 Surgeon: Jorge Peres MD Pre Op Diagnosis: right ureteral stone Patient Data Age: 78 Gender: M Height: 1.78 m Weight: 91.3 kg Last Vital Signs Temp 36.4 C L 10/14/23 08:01 Pulse 58 L 10/14/23 08:01 Resp 18 10/14/23 08:01 BP 184/75 H 10/14/23 08:01 Pulse Ox 97 10/14/23 08:01 O2 Del Method Room Air 10/14/23 08:01 Allergies Allergy/AdvReac Type Severity Reaction Status Date / Time amoxicillin Allergy Mild Rash Verified 10/14/23 07:17 Home Medications Medication Instructions Recorded Confirmed Type magnesium hydroxide 400 mg (170 mg 400 mg PO DAILY 08/31/20 10/08/23 History magnesium) chewable tablet psyllium husk 0.4 gram capsule 1.2 g PO BID 08/31/20 10/08/23 History (Daily Fiber) apixaban 5 mg tablet (Eliquis) 5 mg PO BID 03/27/21 10/08/23 History valsartan 80 mg tablet (Diovan) 80 mg PO BID #180 tabs 07/30/21 10/08/23 Rx donepezil 10 mg tablet 10 mg PO QHS 01/17/22 10/08/23 History atorvastatin 80 mg tablet 80 mg PO DAILY 06/18/22 10/08/23 History trazodone 50 mg tablet 50 mg PO QHS PRN Insomnia 07/30/22 10/08/23 History carvedilol 3.125 mg tablet 3.125 mg PO Q12H #180 tabs 08/26/22 10/08/23 Rx tamsulosin 0.4 mg capsule (Flomax) 0.4 mg PO DAILY #90 caps 04/28/23 10/08/23 Rx nitroglycerin 0.4 mg sublingual 0.4 mg sublingual Q5M PRN chest 06/02/23 10/08/23 Rx tablet pain #30 tabs escitalopram oxalate 10 mg tablet 10 mg PO DAILY #90 tabs 07/21/23 10/08/23 Rx (Lexapro) memantine 10 mg tablet 10 mg PO BID #180 tabs 07/21/23 10/08/23 Rx metformin 500 mg tablet 500 mg PO BID #180 tabs 08/04/23 10/08/23 Rx multivitamin 1 tablet PO DAILY 08/26/23 10/08/23 History pantoprazole 20 mg tablet,delayed 20 mg PO QAM #90 tabs 09/22/23 10/08/23 Rx release lactobacillus combination no.8 3 1 cell PO DAILY 10/08/23 10/08/23 History billion cell capsule Laboratory Tests 10/14/23 07:31 POC Capillary Glucose 140 H mg/dl (65-105) Patient hx anesthesia problems: none Family hx anesthesia problems: none Results Review: All pre-operative results and documents have been reviewed as part of the pre-operative evaluation. [facility] Past Medical History Medical History Afib Arm fracture, left Arthritis CAD (coronary artery disease) COVID-19 History of angina HTN (hypertension) Hyperlipidemia Rectal polyp Rib fracture Stomach ulcer UTI (urinary tract infection) Surgical History Surgical History History of cardiac catheterization History of sinus surgery Hx of CABG Family History Family History Mother Heart disease Father COPD (chronic obstructive pulmonary disease) Asthma Sibling Cancer Sibling Heart disease Sibling COPD (chronic obstructive pulmonary disease) Social History Social History Smoking packs per day: 0.25 Smoking cigarettes per day: 5.0 Years smoked: 7 Smoking pack-years: 1.75 Smoking status: Former smoker Tobacco type: cigarettes Smoking end date: 08/11/79 Alcohol intake: current Drinks per week: 3 Alcohol use details: beer- 3 cans once or twice a week Substance use: never Substance use type: does not use Lack of Transportation: No Lack of Food: Never True Current Housing: I Have Housing Concerned About Future Housing: No Difficulty Paying Gas/Electric Bills: No Difficulty Paying for Meds: No Currently Unemploy
--- NOTE | 2023-10-14 08:47 | WPDHPUPDATE1 ---
History and Physical Update Update Date/Time: 10/14/23 08:47 History and Physical has been reviewed, including an updated exam of the patient. There are NO changes in the patient's condition. Risks, benefits, and alternatives have been discussed and questions answered. Patient agrees to proceed with procedure. Proceed with cystoscopy, right retrograde pyelogram, right ureteroscopy with stone extraction, possible laser, stent placement
[2023-10-14] MEDS: ceFAZolin 2 GM/D5W 50 ML 2 GM/50 ML BAG IVPB (09:01)
[2023-10-14] MEDS: LIDOCAINE HCL 2% GEL UROJET 10 ML PKG MUCOUS MEM (09:15)
--- NOTE | 2023-10-14 09:34 | W.PM.PROC2 ---
Procedure Note - Detailed Date of Procedure 10/14/23 Pre-op Diagnosis right ureteral stone Post-op Diagnosis Same Procedure Performed Cystoscopy, right retrograde pyelogram, right ureteroscopy with stone extraction, right ureteral stent placement 4.8 Macedonian contour Surgeon Jorge Peres MD Anesthesia General Description of Procedure Patient was taken to the operative suite correctly identified. Once anesthesia was obtained was placed in dorsal lithotomy position and prepped and draped usual sterile fashion. Twenty-two Macedonian scope was inserted into the urethra. There were no strictures noted. Bladder is without any evidence of tumors. Right ureteral orifice was cannulated with a Sensor wire. I dilated with an 8/10 dilator. Rigid ureteral scope was then inserted. The stone was visualized. Using escape basket I really moved the stone and. 4.8 Macedonian contour stent was then placed with the proximal end coiled in the renal pelvis and the distal in the bladder. 2% viscous lidocaine was inserted into the urethra patient is taken recovery stable condition. He will follow-up in a week's time for stent removal. This completes dictation. Please send a copy of op note to my office. Estimated Blood Loss 0 Drains Yes Packing No Pathology Yes Complications No immediate complications Condition Stable Disposition PACU
[2023-10-14 10:03] LABS: Glucose Point of Care 137 mg/dl (65-105)
== END 2023-10-14 11:26 | disposition home or self-care (01) ==
PROVIDERS: PCP Family Medicine; Visit Provider Urology
PROC: (CPT 52352; principal; 2023-10-14 09:00)
DX: N20.1 Calculus of ureter (principal); I48.91 Unspecified atrial fibrillation; I25.10 Atherosclerotic heart disease of native coronary artery without angina pectoris; I10 Essential (primary) hypertension; E78.5 Hyperlipidemia, unspecified; Z95.1 Presence of aortocoronary bypass graft; Z87.891 Personal history of nicotine dependence; Z79.01 Long term (current) use of anticoagulants; Z79.84 Long term (current) use of oral hypoglycemic drugs
CPT/HCPCS: 52332; 52352; 74176; 74420; 82365; 82948; 88300; 93005; C1769; C2617; J0690; J2405; J2704; J3010; J7120; Q9966

== ENCOUNTER 2024-02-07 12:29 | Emergency (ER) | payer OTHER, SELFPAY ==
--- NOTE | ~2024-02-07 | XR_ITS ---
EXAMINATION: XR chest 2V DATE: 02/07/2024 12:55 INDICATION: Wet cough and congestion TECHNIQUE: frontal view of the chest was obtained. COMPARISON: Chest radiograph dated 09/03/2017 FINDINGS: Unchanged subtle opacity at the lateral right upper lung zone most likely atelectasis/scarring relate d to chronic infection. Unchanged mild lingular atelectasis along side a small left pericardial fat p ad. No new airspace opacities, pulmonary edema, pleural effusion or pneumothorax. The cardiomediastin al silhouette is normal. Median sternotomy wires and mediastinal surgical clips are seen, likely from prior coronary artery bypass grafting. Mild to moderate thoracic spondylosis with chronic mild anter ior wedging of a midthoracic vertebral body. IMPRESSION: 1. No acute cardiopulmonary disease. Reviewed, dictated and finalized at location A. TIVE PHYSICAL EDUCATION TEACHER
--- NOTE | 2024-02-07 12:35 | ED.URI ---
HPI - URI/Sore Throat General Chief Complaint: Upper Respiratory Infection Stated Complaint: Weakness/Cough/SOB Time Seen by Provider: 02/07/24 12:39 Source: patient, RN notes reviewed and old records reviewed Mode of arrival: ambulatory Limitations: no limitations History of Present Illness HPI Narrative: Patient with 2 day history of cough, fatigue, lack of energy. He reports intermittent fever. He has been taking Tylenol with moderate relief. He has associated body aches. Complains of some wheezing. He is not in any distress upon arrival Related Data Home Medications ?Medication ?Instructions ?Recorded ?Confirmed ?Last Taken ?Type magnesium hydroxide 400 mg (170 mg 400 mg PO DAILY 08/31/20 02/07/24 Unknown History magnesium) chewable tablet psyllium husk 0.4 gram capsule 1.2 g PO BID 08/31/20 02/07/24 Unknown History (Daily Fiber) apixaban 5 mg tablet (Eliquis) 5 mg PO BID 03/27/21 02/07/24 Unknown History donepezil 10 mg tablet 10 mg PO QHS 01/17/22 02/07/24 Unknown History atorvastatin 80 mg tablet 80 mg PO DAILY 06/18/22 02/07/24 Unknown History trazodone 50 mg tablet 50 mg PO QHS PRN Insomnia 07/30/22 02/07/24 Unknown History multivitamin 1 tablet PO DAILY 08/26/23 02/07/24 Unknown History lactobacillus combination no.8 3 1 cell PO DAILY 10/08/23 02/07/24 Unknown History billion cell capsule Allergies Allergy/AdvReac Type Severity Reaction Status Date / Time amoxicillin Allergy Mild Rash Verified 02/07/24 12:31 Review of Systems Review of Systems: All systems reviewed & are unremarkable except as noted in HPI and below Constitutional: Constitutional: Reports no additional constitutional complaints, Reports body ache(s), Reports chills, Reports fever(s) and Reports lethargy ENT: Reports system reviewed and no additional complaints, except as documented, Reports nasal congestion and Reports nasal discharge Cardiovascular: Cardiovascular: Reports no additional cardiovascular complaints Respiratory: Respiratory: Reports no additional respiratory complaints, Reports chest congestion, Reports cough and Reports wheezing Gastrointestinal: Gastrointestinal: Reports no additional gastrointestinal complaints PMFSH Past Medical History Medical History Afib Arm fracture, left Arthritis CAD (coronary artery disease) COVID-19 History of angina HTN (hypertension) Hyperlipidemia Rectal polyp Rib fracture Stomach ulcer UTI (urinary tract infection) Surgical History Surgical History History of cardiac catheterization History of sinus surgery Hx of CABG Family History Family History Mother Heart disease Father COPD (chronic obstructive pulmonary disease) Asthma Sibling Cancer Sibling Heart disease Sibling COPD (chronic obstructive pulmonary disease) Social History Social History Smoking packs per day: 0.25 Smoking cigarettes per day: 5.0 Years smoked: 7 Smoking pack-years: 1.75 Smoking status: Former smoker Tobacco type: cigarettes Smoking end date: 08/11/79 Alcohol intake: current Drinks per week: 3 Alcohol use details: beer- 3 cans once or twice a week Substance use: never Substance use type: does not use Lack of Transportation: No Lack of Food: Never True Current Housing: I Have Housing Concerned About Future Housing: No Difficulty Paying Gas/Electric Bills: No Difficulty Paying for Meds: No Currently Unemployed: No Education: High School Diploma/GED Difficulty w/ Childcare or Family Care: No Living arrangements: with family Additional living arrangements comments: Occupation/Education: retired Gender identity (if verbalized by the patient): Male Sexual Orientation (if Verbalized by the Patient): Straight or Heterosexual Spiritual care concerns: No Comments At the time of my signature, I reviewed and agree with the nursing past medical, surgical, social, and family history. There is no relevant family history pertinent to the patient complaint. Exam Const: General: cooperative, no acute distress, alert and awake Orientation/consciousness: oriented to person, oriented to place and oriented to time HENMT: Head: normal to inspection Mouth: Yes moist mucous membranes Resp: Effort & Inspection: normal respiratory effort and able to speak in complete sentences Auscultation: clear to auscultation bilaterally, no crackles, no rales, rhonchi lower bilaterally and wheezes scattered wheezes Cardio: Palpation: normal PMI Rate: regular rate Rhythm: regular rhythm Heart sounds: S1 normal heart sound present and S2 normal heart sound present Neuro: General: oriented to person, oriented to place and oriented to time Cranial nerves: Yes CN's II-XII intact bilaterally Psych: Appearance: grossly normal Thought process: Normal thought process present Insight: Good insight present (Psych) Judgement: Good judgement present (Psych) Course Course Level of Care: Express Care Visit Vital Signs Vital signs: Vital Signs Temperature 99.2 F 02/07/24 12:42 Pulse Rate 102 H 02/07/24 12:42 Respiratory Rate 16 02/07/24 12:42 Blood Pressure 167/85 H 02/07/24 12:42 Pulse Oximetry 92 02/07/24 12:42 Oxygen Delivery Room Air 02/07/24 12:42 Temperature 99.2 F 02/07/24 12:42 Pulse Rate 103 H 02/07/24 13:43 Respiratory Rate 16 02/07/24 12:42 Blood Pressure 167/85 H 02/07/24 12:42 Pulse Oximetry 96 02/07/24 13:43 Oxygen Delivery Room Air 02/07/24 13:43 Reviewed MDM - URI/Sore Throat MDM Narrative Medical decision making narrative: Lung sounds much improved with treatment. Patient states that he is feeling much better. Positive flu a. Treat with Tamiflu, steroid burst, bronchodilator. Strict emergency department precautions discussed with patient. Discharge instructions reviewed with patient, as well as provided in writing per nursing staff. The instructions also include specific and strict return/GO TO THE ER as well as f/u information. All questions have been answered, and the patient deny any further questions with discharge and discharge plan. Some parts of this dictation were generated by voice recognition software and may contain typographical and/or grammatical inaccuracies. Differential Diagnosis Differential diagnosis: Likely upper respiratory infection, otitis media, sinusitis, viral infection, bronchitis and pharyngitis Medical Records Attestation: I reviewed the patient's medical records. Lab Data Attestation: I reviewed the patient's lab results. Labs: Lab Results 02/07/24 02/07/24 Range/Units 12:40 12:41 POC Influenza A Ag Positive (Negative) POC Influenza B Ag Negative (Negative) POC SARS CoV-2 Ag Negative (Negative) Imaging Data Attestation: I personally reviewed and interpreted this imaging study as follows: My impression: No acute finding Radiologist's impression: [facility] [address] [place] [address] XRay Report Signed Patient: Álvaro Cedeno : 1945 MR#: [id number] Age: 78 Acct:[id number] Loc: [facility] ADM Date: 02/07/24Attending Dr: Ordering Physician: Diana Cantrell FNP Date of Service: 02/07/24 Procedure(s): XR chest 2V Accession Number(s): [id number] cc: Diana Cantrell FNP; Reginald Hook MD~ EXAMINATION: XR chest 2V DATE: 02/07/2024 12:55 INDICATION: Wet cough and congestion TECHNIQUE: frontal view of the chest was obtained. COMPARISON: Chest radiograph dated 09/03/2017 FINDINGS: Unchanged subtle opacity at the lateral right upper lung zone most likely atelectasis/scarring related to chronic infection. Unchanged mild lingular atelectasis along side a small left pericardial fat pad. No new airspace opacities, pulmonary edema, pleural effusion or pneumothorax. The cardiomediastinal silhouette is normal. Median sternotomy wires and mediastinal surgical clips are seen, likely from prior coronary artery bypass grafting. Mild to moderate thoracic spondylosis with chronic mild anterior wedging of a midthoracic vertebral body. IMPRESSION: 1. No acute cardiopulmonary disease. Reviewed, dictated and finalized at location A. ESS CONTROL TECHNICIAN Dictated By: Brian Marks MD 02/07/24 1301 Signed By: <Electronically signed by Brian Marks MD in OV> Discharge Plan Discharge Clinical Impression: Influenza A Patient Disposition: Home, Self-Care Condition: Stable Instructions: Antibiotic Form, Influenza (ED) Additional Instructions: Take all medication as prescribed. Follow-up with primary care provider. Emergency department immediately for any new or worse symptoms. You were given 1 dose of prednisone at the clinic today. Please do not take anymore until tomorrow morning Patient Language: Occitan Prescriptions: New oseltamivir [Tamiflu] 75 mg capsule 75 mg PO Q12H 5 Days Qty: 10 0RF prednisone 50 mg tablet 50 mg PO DAILY Qty: 4 0RF albuterol sulfate [Ventolin HFA] 90 mcg/actuation HFA aerosol inhaler 2 puff inhalation QID PRN (Reason: shortness of breath or wheezing) Qty: 8.5 0RF No Action psyllium husk [Daily Fiber] 0.4 gram capsule 1.2 g PO BID magnesium hydroxide 400 mg (170 mg magnesium) tablet,chewable 400 mg PO DAILY donepezil 10 mg tablet 10 mg PO QHS Eliquis 5 mg tablet 5 mg PO BID atorvastatin 80 mg tablet 80 mg PO DAILY trazodone 50 mg tablet 50 mg PO QHS PRN (Reason: Insomnia) multivitamin Tablet 1 tablet PO DAILY lactobacillus combination no.8 3 billion cell Capsule 1 cell PO DAILY valsartan [Diovan] 80 mg tablet 80 mg PO BID Qty: 180 0RF carvedilol 3.125 mg tablet 3.125 mg PO Q12H Qty: 180 1RF Rx Instructions: must administer with a meal/food nitroglycerin 0.4 mg tablet, sublingual 0.4 mg sublingual Q5M PRN (Reason: chest pain) Qty: 30 1RF Rx Instructions: do not exceed 3 doses per episode pantoprazole 20 mg tablet,delayed release (DR/EC) 20 mg PO QAM Qty: 90 1RF tamsulosin [Flomax] 0.4 mg capsule 0.4 mg PO DAILY Qty: 90 1RF metformin 500 mg tablet See Rx Instructions .ROUTE .COMPLEX Qty: 180 0RF Dose Instruction: TAKE 1 TABLET BY MOUTH TWICE DAILY Rx Instructions: TAKE 1 TABLET BY MOUTH TWICE DAILY escitalopram oxalate [Lexapro] 10 mg tablet 10 mg PO DAILY Qty: 90 1RF Patient Comments: HS memantine 10 mg tablet See Rx Instructions .ROUTE .COMPLEX Qty: 180 0RF Dose Instruction: TAKE 1 TABLET BY MOUTH TWICE DAILY Rx Instructions: TAKE 1 TABLET BY MOUTH TWICE DAILY Follow-up/Referrals: Reginald Hook MD [Primary Care Provider] - 2 Days Time of Disposition: 13:26
[2024-02-07 12:42] VITALS: BP 167/85; PULSE 102; RESP 16; TEMP 37.3; O2SAT 92
[2024-02-07] MEDS: predniSONE 20 MG TABLET 60 MG PO (12:56)
[2024-02-07] MEDS: IPRATROPIUM 0.5 MG/ALBUTEROL SULFATE 2.5 MG AMPUL.NEB 3 ML INHALATION (12:58)
[2024-02-07 13:43] VITALS: PULSE 103; O2SAT 96
[2024-02-07 14:46] LABS: EDCOVIDSCREEN Negative (Negative)
[2024-02-07 14:46] LABS: EDINFLUASCREEN Positive (Negative); EDINFLUBSCREEN Negative (Negative)
== END 2024-02-07 13:43 | disposition home or self-care (01) ==
PROVIDERS: Emergency Provider Nurse Practitioner Family; PCP Family Medicine
DX: J10.1 Influenza due to other identified influenza virus with other respiratory manifestations (principal); Z20.822 Contact with and (suspected) exposure to COVID-19; I48.91 Unspecified atrial fibrillation; I25.110 Atherosclerotic heart disease of native coronary artery with unstable angina pectoris; I10 Essential (primary) hypertension; E78.5 Hyperlipidemia, unspecified; M19.90 Unspecified osteoarthritis, unspecified site; Z95.1 Presence of aortocoronary bypass graft; Z87.891 Personal history of nicotine dependence; Z86.16 Personal history of COVID-19; Z79.01 Long term (current) use of anticoagulants
CPT/HCPCS: 71046; 87426; 87804; 94640; 99213; G0463; J7512

== ENCOUNTER 2024-04-30 11:43 | Outpatient (CLI) | payer OTHER, SELFPAY ==
--- NOTE | ~2024-04-30 | XR_ITS ---
XR abdomen/kub 1V Ordering provider: Radha Miller APRN History: . R19.4 - Change in bowel habit . Comparison: None. FINDINGS: BOWEL: Nonobstructive bowel gas pattern. ORGANOMEGALY: None. SIGNIFICANT PATHOLOGIC CALCIFICATIONS: Tiny stone in the left kidney lower pole. OTHER: No free air is seen under the diaphragm. 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 Degenerative spine. Bilateral sacroiliitis. IMPRESSION: NO ACUTE ABDOMINAL FINDINGS. Tiny stone in the left kidney lower pole. Reviewed, dictated and finalized at location A.
--- OUTSIDE RECORDS SUMMARY | 2024-04-30 12:48 | XMS_ITS | Encounter Summary ---
Author Organization [facility] Address [address] [place] [address] Phone Care Team Providers Care Management Associate Name Role Phone Jose Roland DO Primary Care Provider [phone] Encounter Details Date Type Department Care Team (Late st Contact Info) Description 02/13/[address] 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
--- OUTSIDE RECORDS SUMMARY | 2024-04-30 12:48 | XMS_ITS | Encounter Summary ---
Author Organization [employer] Address [address] [place] [address] Care Team Providers Care Flow Trader Name Role Phone Perez Le MD Primary Care Provider [phone] Encounter Details Date Type Department Care Team (Late st Contact Info) Description 08/02/2002 Outpatient Historical [facility] Support Serv. ([facility]t Cardiology[facility]) [address] 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
--- OUTSIDE RECORDS SUMMARY | 2024-04-30 12:48 | XMS_ITS | Encounter Summary ---
Author Organization [facility] Address [address] [place] [address] Care Team Providers Care Headrig Sawyer Name Role Phone Perez Le MD Primary Care Provider [phone] Encounter Details Date Type Department Care Team (Latest Contact Info) Description 08/02/2002 Outpatient Historical HIS CARD RESEARCH SOIL SCIENTIST Jg Baer MD [facility] [address] 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
--- OUTSIDE RECORDS SUMMARY | 2024-04-30 12:48 | XMS_ITS | Encounter Summary ---
Author Organization [facility] Address 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
--- OUTSIDE RECORDS SUMMARY | 2024-04-30 12:48 | XMS_ITS | Clinical Summary ---
Author Organization [facility] Address [address] Mayan: Epic Prelude ADT [place] [address] Care Team Providers Care Promotions Executive Producer Name Role Phone Perez Le MD Primary Care Provider Allergies Active Allergy Reactions Criticality Noted Date Comments Amoxicillin Other (See Comments) 07/25/2008 Levofloxacin Other (See Comments) 07/25/2008 Medications MULTIVITAMIN Oral Tab Take 1 Tab by mouth daily. Active FIBER PO Take by mouth. Therapy 4 per day Active losartan (COZAAR) 50 mg Oral Tab Take 1 Tab by mouth daily. 90 Tab 1 07/26/2008 Active lisinopril (PRINIVIL) 20 mg Oral Tab Take 1 Tab by mouth daily. 90 Tab 3 09/15/2008 Active simvastatin (ZOCOR) 80 mg Oral Tab Take 0.5 Tabs by mouth Daily LATE. 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 Gender Identity Not on file Sexual Orientation Not on file Last Filed Vital Signs Vital Sign Reading Time Taken Comments Blood Pressure 118/82 07/26/2008 10:58 AM CDT Pulse 77 07/26/2008 10:58 AM CDT Temperature - - Respiratory Rate - - Oxygen Saturation 97% 07/26/2008 10:58 AM CDT Inhaled Oxygen Concentration - - Weight 98.4 kg (217 lb) 07/26/2008 10:58 AM CDT Height - - Body Mass Index - - Plan of Treatment Health Maintenance Due Date Last Done Comments DTAP/TDAP/TD VACCINES (1 - Tdap) 09/30/1962 PNEUMOCOCCAL VACCINE 50+ YEARS (1 of 1 - PCV) 09/30/18 94 ZOSTER VACCINE (1 of 2) 09/30/1993 RSV VACCINE (60+ or ) (1 - 1-dose 75+ series) 09/30/2018 INFLUENZA VACCINE (#1) 2023 Insurance Care Teams Promotions Executive Producer Relationship Specialty Start Date End Date Perez Le MD [address] [place] [address] PCP - General 08/02/02
--- OUTSIDE RECORDS SUMMARY | 2024-04-30 12:48 | XMS_ITS | Clinical Summary ---
Author Organization [facility] [address] Address [address] [place] [address] Care Team Providers Care Telecasting Engineer Name Role Phone Jose Roland DO Primary Care Provider [phone] Allergies Active Allergy Reactions Criticality Noted Date Comments Amoxicillin Rash,Other (See comments) High 9 Levofloxacin Rash,Other (See comments) Medium 07/26/19 09 Medications multivitamin tablet tablet take 1 by Oral route once 0 0 3 Active methylcellulose , laxative, (FIBER THERAPY, M-CELLULOSE,) 500 mg tablet 500 mg. 0 0 3 Active clopidogrel (PLAVIX) 75 mg tablet take 1 by Oral route every day 0 0 6 Active tamsulosin (FLOMAX) 0.4 mg capsule,extende d release 24hr Take 1 capsule (0.4 mg total) by mouth daily Active Eliquis 5 mg tablet Take 1 tablet (5 mg total) by mouth 2 (two) times a day 2 Active carvediloL (COREG) 3.125 mg tablet Take 1 tablet (3.125 mg total) by mouth 2 (two) times a day 2 Active nitroglycerin (NITROSTAT) 0.4 mg SL tablet Apply topically [address] (PROTONIX) 20 mg EC tablet Take by mouth 0 Active psyllium 0.52 gram capsule Daily Fiber 0.52 gram capsule 0 Active valsartan (DIOVAN) 80 mg tablet Take 1 tablet (80 mg total) by mouth 2 (two) times a day 2 Active escitalopram (LEXAPRO) 10 mg tablet escitalopram oxalate 10 mg tablet 9 Active clindamycin (CLEOCIN) 150 mg capsule Take 1 capsule (150 mg total) by mouth 3 (three) times a day 3 Active atorvastatin (LIPITOR) 80 mg tablet Take 1 tablet (80 mg total) by mouth daily 3 Active traZODone (DESYREL) 50 mg tabletIndicatio ns:insomnia associated with depression Take 1 tablet (50 mg total) by mouth nightly 30 tablet 6 3 Active donepeziL (ARICEPT) 10 mg tablet TAKE 1 TABLET BY MOUTH EVERY EVENING WITH FOOD OR WITHIN 30 MINUTES AFTER A MEAL 90 tablet 3 4 Active memantine (NAMENDA) 10 mg tablet Take 1 tablet (10 mg total) by mouth 2 (two) times a day 3 Active metFORMIN (GLUCOPHAGE) 500 mg tablet Take 1 tablet (500 mg total) by mouth 2 (two) times a day 3 Active vancomycin (VANCOCIN) 125 mg capsule Take 1 capsule (125 mg total) by mouth 4 (four) times a day 4 Active Active Problems Problem Noted Date Diagnosed Date Alzheimer's disease with late onset 06/24/2022 Depression 06/24/2022 Sleep difficulties 06/24/2022 Paroxysmal atrial fibrillation 09/25/2016 Coronary artery disease invo lving [place] coronary artery of [place] heart without angina pectoris 09/25/2016 S/P CABG (coronary artery bypass graft) 09/26/19 17 Surgical History Surgery Date Site/Laterality Comments CORONARY ARTERY BYPASS GRAFT Medical History Medical History Date Comments Hypertension Hypertension Hx Other Medical dyslipidemia Atrial fibrillation (HCC) Hyperlipidemia Family History Medical History Relation Name Comments COPD Brother 1 Heart attack Brother 2 Heart attack Brother 3 Heart attack Brother 4 Asthma Father COPD Father Heart disease Mother Heart failure Mother Alzheimer's disease Sister Lung cancer Sister Relation Name Status Comments Brother 1 Alive Brother 2 Brother 3 Brother 4 Father Mother Sister Social History Tobacco Use Types Packs/Day Years Used Date Smoking Tobacco: Former Cigarettes Q uit: 09/25/1976 Smokeless Tobacco: Never Tobacco Cessation:Counseling Given: Not Answered Alcohol Use Standard Drinks/Week Comments Yes 12 (1 standard drink = 0.6 oz pu re alcohol) Sex and Gender Information Value Date Recorded Sex Assigned at Not on file 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 Gender Identity Not on file Sexual Orientation Not on file Obstetrics History Last Filed Vital Signs Vital Sign Reading Time Taken Comments Blood Pressure 153/67 06/24/2022 8:08 AM CDT Pulse 64 06/24/2022 8:08 AM CDT Temperature 36.5 C (97.7 F) 06/24/2022 8:08 AM CDT Respiratory Rate - - Oxygen Saturation 94% 06/24/2022 8:08 AM CDT Inhaled Oxygen Concentration - - Weight 93.7 kg (206 lb 8 oz) 06/24/2022 8:08 AM CDT Height 180.3 cm (5' 11 ) 06/24/2022 8:08 AM CDT Body Mass Index 28.8 06/24/2022 8:08 AM CDT Plan of Treatment Health Maintenance Due Date Last Done Comments Depression Screening 1945 Fall Risk Assessment 1945 DTaP/Tdap/Td Vaccine (1 - Tdap) 09/30/1954 Hepatitis B Screening 09/30/1961 Pneumococcal vaccine 65+ (1 of 1 - PCV) 09/30/1993 Zoster Vaccine (1 of 2) 09/30/1993 Abdominal Aortic Aneurysm (AAA) Screen 09/30/2008 Well Visit 65+ 09/30/2008 Influenza Vaccine (#1) 2023 Insurance [facility] [address] Care Teams Telecasting Engineer Relationship Specialty Start Date End Date Jose Roland DO PCP - General Internal Medicine 12/07/21
--- OUTSIDE RECORDS SUMMARY | 2024-04-30 12:48 | XMS_ITS | Encounter Summary ---
Author Organization [facility] Address [address] [place] [address] Care Team Providers Care Director Facilities Maintenance Name Role Phone Perez Petit MD Primary Care Provider Encounter Details Date Type Department Care Team (Latest Contact Info) Description 08/03/2008 Outpatient Historical HIS NUCLEAR MEDICINE [facility]ART HOSP Ronn Singh MD [facility] [address] [place] [address] Unspecified Chest Pain Social History Tobacco Use Types Packs/Day Years Used Date Smoking Tobacco: Former Cigarettes Q uit: 07/26/1978 Alcohol Use Standard Drinks/Week Comments Yes 0 (1 standard drink = 0.6 oz pur e alcohol) Sex and Gender Information Value Date Recorded Sex Assigned at Not on file Legal Sex Male 3:20 AM DIRECTOR FAMILY Gender Identity Not on file Sexual Orientation Not on file documented as of this encounter Plan of Treatment Not on file documented as of this encounter Procedures Procedure Name Priority Date/Time Associated Diagnosis Comments NM MYOCARD PERF IMAG SPECT MULT Timed Study 08/03/2008 1:05 PM CDT documented in this encounter Results * NM MYOCARD PERF IMAG SPECT MULT (08/03/2008 1:05 PM CDT) 08/03/2008 1:05 PM CDT Narrative INTERFACE SYSTEM - 08/03/2008 4:00 PM CDT [facility] [address] [place], [place] [address] Admit Date: 08/03/2008 KAL BERNAL Sex: M Admit Prov: RONN SINGH Date: 1945 Primary Care Prov: PEREZ PETIT CMRN: [id number] Room: [facility] SSN: [id number] IMAGING SERVICES Ordering Prov: N/A Accession Number: [id number] Interpretation Date of Procedure: 08/03/2008 Procedure Type: 1 Day Exercise Stress Myocardial Perfusion Study Clinical Indication: 62-year-old with chest pain and history bypass surgery, hypertension, hyperlipidemia. Medications: Aspirin, simvastatin, Cozaar Exercise Stress Procedure: The patient exercised for 9 minutes and 15 seconds on a Mateus protocol, achieving an estimated workload of 10 METS. The resting heart rate was 78 bpm, and increased to 142 bpm at peak exercise, which was 91 % of the predicted maximum heart rate. The resting blood pressure was 170 / 90 and 211 / 74 at peak exercise, demonstrating resting hypertension and a hypertensive response to exercise. Exercise was terminated due to fatigue. ECG: NSR. Normal tracing. No ischemic ST segment changes developed during treadmill exercise. There were no arrhythmias. Nuclear Imaging Protocol: Myocardial perfusion imaging was performed at rest approximately 60 minutes following the intravenous injection of 10.1 mCi TC99m tetrofosmin. At peak exercise, the patient was injected intravenously with 41.9 mCi TC99m tetrofosmin and exercise was continued for 2 minutes. Gated post-stress tomographic imaging was performed approximately 30 minutes later in same manner. SPECT reconstruction was performed in the short, vertical long and horizontal long axis views in both rest and stress image sets. Findings: There is normal perfusion to all myocardial segments during both stress and rest imaging. There is no ischemia. Gated SPECT examination reveals normal left ventricular cavity size. There is normal left ventricular wall motion. LVEF 71 %. Impression: 1. Normal myocardial perfusion study. No ischemia. 2. Normal gated SPECT examination. Normal left ventricular wall motion. LVEF 71 %. 3. No ischemic ST segment changes developed during treadmill exercise. 4. Good exercise capacity. 5. The technical quality of the study is good. 6. No prior study available for comparison. Recommendations: Clinical correlation . Dictated by: MAO ESCALERA 08/03/2008 15:56 Electronically signed by: MAO ESCALERA 08/03/2008 15:59 Procedure Note Mao Escalera MD - 08/03/2008 [facility] [address] [place], [place] [address] Admit Date: 08/03/2008 KAL BERNAL Sex: M Admit Prov: RONN SINGH Date: 1945 Primary Care Prov: PEREZ PETIT CMRN: [id number] Room: [facility] SSN: [id number] IMAGING SERVICES Ordering Prov: N/A Interpretation Date of Procedure: 08/03/2008 Procedure Type: 1 Day Exercise Stress Myocardial Perfusion Study Clinical Indication: 62-year-old with chest pain and history bypass surgery, hypertension, hyperlipidemia. Medications: Aspirin, simvastatin, Cozaar Exercise Stress Procedure: The patient exercised for 9 minutes and 15 seconds on a Bruceprotocol, achieving an estimated workload of 10 METS. The resting heart ratewas 78 bpm, and increased to 142 bpm at peak exercise, which was 91 % ofthe predicted maximum heart rate. The resting blood pressure was 170 / 90and 211 / 74 at peak exercise, demonstrating resting hypertension and a hypertensive response to exercise. Exercise was terminated due tofatigue. ECG: NSR. Normal tracing. No ischemic ST segment changes developedduring treadmill exercise. There were no arrhythmias. Nuclear Imaging Protocol: Myocardial perfusion imaging was performed at rest approximately 60minutes following the intravenous injection of 10.1 mCi TC99m tetrofosmin. Atpeak exercise, the patient was injected intravenously with 41.9 lCnFM83a tetrofosmin and exercise was continued for 2 minutes. Gatedpost-stress tomographic imaging was performed approximately 30 minutes later insame manner. SPECT reconstruction was performed in the short, verticallong and horizontal long axis views in both rest and stress image sets. Findings: There is normal perfusion to all myocardial segments during bothstress and rest imaging. There is no ischemia. Gated SPECT examination revealsnormal left ventricular cavity size. There is normal left ventricular wallmotion. LVEF 71 %. Impression: 1. Normal myocardial perfusion study. No ischemia. 2. Normal gated SPECT examination. Normal left ventricular wallmotion. LVEF 71 %. 3. No ischemic ST segment changes developed during treadmillexercise. 4. Good exercise capacity. 5. The technical quality of the study is good. 6. No prior study available for comparison. Recommendations: Clinical correlation . Dictated by: MAO ESCALERA 08/03/2008 15:56 Electronically signed by: MAO ESCALERA 08/03/2008 15:59 us Ronn Singh MD NM ORDERABLES Final Result INTERFACE SYSTEM Refer to clinic/hospital department documented in this encounter Visit Diagnoses Diagnosis Chest pain, unspecified documented in this encounter Care Teams Director Facilities Maintenance Relationship Specialty Start Date End Date Perez Petit MD [address] [place] [address] PCP - General 08/02/02 documented as of this encounter
--- OUTSIDE RECORDS SUMMARY | 2024-04-30 12:48 | XMS_ITS | Referral Summary ---
Author Organization [facility] [address] Address [address] [place] [address] Care Team Providers Care Heel Stiffener Name Role Phone Jose Roland DO Primary Care Provider [phone] Allergies Active Allergy Reactions Criticality Noted Date [...] fibrillation 09/25/2016 Coronary artery disease invo lving [place] coronary artery of [place] heart without angina pectoris 09/25/2016 S/P CABG (coronary artery bypass graft) 09/26/19 17 Social History Tobacco Use Types Packs/Day Years Used Date Smoking Tobacco: Former Cigarettes Q uit: 09/25/1976 Smokeless Tobacco: Never Tobacco Cessation:Counseling Given: Not Answered Alcohol Use Standard Drinks/Week Comments Yes 12 (1 standard drink = 0.6 oz pu re alcohol) Sex and Gender Information Value Date Recorded Sex Assigned at Not on file Legal 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
== END 2024-04-30 11:44 | disposition home or self-care (01) ==
PROVIDERS: PCP Family Medicine; Visit Provider Nurse Practitioner Family
DX: N20.0 Calculus of kidney (principal); R19.4 Change in bowel habit
CPT/HCPCS: 74018

== ENCOUNTER 2024-09-24 12:39 | Emergency (ER) | payer OTHER, SELFPAY ==
[2024-09-24 12:42] VITALS: BP 151/68; PULSE 68; RESP 16; TEMP 36.7; O2SAT 97
--- OUTSIDE RECORDS SUMMARY | 2024-09-24 12:42 | XMS_ITS | Encounter Summary ---
Author Organization [facility] Address 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
--- OUTSIDE RECORDS SUMMARY | 2024-09-24 12:42 | XMS_ITS | Clinical Summary ---
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
--- OUTSIDE RECORDS SUMMARY | 2024-09-24 12:42 | XMS_ITS | Encounter Summary ---
Author Organization [facility] Address [address] [place] [address] Phone Care Team Providers Care Construction Equipment Overhauler Name Role Phone Jose Roland DO Primary Care Provider [phone] Encounter Details Date Type Department Care Team (Late st Contact Info) Description 02/13/2022 Telephone [facility] [address] [facility] 6[address] [place] [address] [place] [address] [place] Social History Tobacco Use Types Packs/Day Years Used Date Smoking Tobacco: Former Cigarettes Q uit: 09/25/1976 Smokeless Tobacco: Never Alcohol Use Standard Drinks/Week Comments Yes 12 (1 standard drink = 0.6 oz pu re alcohol) Sex and Gender Information Value Date Recorded Sex Assigned at Not on file Legal Sex Male 2:02 AM INWEAVER Gender Identity Not on file Sexual Orientation Not on file documented as of this encounter Plan of Treatment Not on file documented as of this encounter Visit Diagnoses Not on filedocumented in this encounter Care Teams Construction Equipment Overhauler Relationship Specialty Start Date End Date Jose Roland DO PCP - General Internal Medicine 12/07/21 documented as of this encounter
--- OUTSIDE RECORDS SUMMARY | 2024-09-24 12:42 | XMS_ITS | Encounter Summary ---
Author Organization [facility] Address [address] [place] [address] Care Team Providers Care Vegetable Thinner Name Role Phone Perez Le MD Primary Care Provider [phone] Encounter Details Date Type Department Care Team (Latest Contact Info) Description 08/02/2002 Outpatient Historical HIS CARD PSYCHIATRY RESIDENT Jg Baer MD [facility] [address] [place] [address] Megan Palma MD CORON ATHEROSCL [place] CORON VESSEL (Primary Dx) Social History Tobacco Use Types Packs/Day Years Used Date Smoking Tobacco: Never Assessed Sex and Gender Information Value Date Recorded Sex Assigned at Not on file 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
--- OUTSIDE RECORDS SUMMARY | 2024-09-24 12:42 | XMS_ITS | Encounter Summary ---
Author Organization [employer] Address [address] [place] [address] Care Team Providers Care Railroad Yard Worker Name Role Phone Perez Le MD Primary Care Provider [phone] Encounter Details Date Type Department Care Team (Late st Contact Info) Description 08/02/2002 Outpatient Historical [facility] Support Serv. (Adt Cardiology-[facility]) [address] 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
--- OUTSIDE RECORDS SUMMARY | 2024-09-24 12:42 | XMS_ITS | Clinical Summary ---
Author Organization 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
--- OUTSIDE RECORDS SUMMARY | 2024-09-24 12:42 | XMS_ITS | Encounter Summary ---
Author Organization [facility] Address [address] [place] [address] Care Team Providers Care Medical Device Sales Consultant Name Role Phone Perez Petit MD Primary Care Provider [phone] Encounter Details Date Type Department Care Team (Latest Contact Info) Description 08/03/2008 Outpatient Historical [facility] Ronn Singh MD [facility] S [facility] [address] [place] [address] Unspecified Chest Pain Social History Tobacco Use Types Packs/Day Years Used Date Smoking Tobacco: Former Cigarettes Q uit: 07/26/1978 Alcohol Use Standard Drinks/Week Comments Yes 0 (1 standard drink = 0.6 oz pur e alcohol) Sex and Gender Information Value Date Recorded Sex Assigned at Not on file 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 [place], [place] [address] Admit Date: 08/03/2008 KAL BERNAL Sex: M Admit Prov: RONN SINGH Date: 1945 Primary Care Prov: PEREZ PETIT CMRN: [id number] Room: [facility] SSN: [id number] IMAGING SERVICES Ordering Prov: N/A Interpretation Date [...] the patient was injected intravenously with 41.9 [id number] tetrofosmin and exercise was continued for 2 [...] unspecified documented in this encounter Care Teams Medical Device Sales Consultant Relationship Specialty Start Date End Date Perez Petit MD [address] [place] [address] PCP - General 08/02/02 documented as of this encounter
--- OUTSIDE RECORDS SUMMARY | 2024-09-24 14:41 | XMS_ITS | Clinical Summary ---
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
--- OUTSIDE RECORDS SUMMARY | 2024-09-24 14:41 | XMS_ITS | Clinical Summary ---
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
--- OUTSIDE RECORDS SUMMARY | 2024-09-24 14:41 | XMS_ITS | Encounter Summary ---
Author Organization [employer] Address [address] [place] [address] Care Team Providers Care Solo Musician Name Role Phone Perez Le MD Primary Care Provider [phone] Encounter Details Date Type Department Care Team (Late st Contact Info) Description 08/02/2002 Outpatient Historical [facility] Support Serv. (Adt Cardiology-[facility]) [address] 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
--- OUTSIDE RECORDS SUMMARY | 2024-09-24 14:41 | XMS_ITS | Encounter Summary ---
Author Organization [facility] Address [address] [place] [address] Care Team Providers Care Sort Manager Name Role Phone Perez Le MD Primary Care Provider [phone] Encounter Details Date Type Department Care Team (Latest Contact Info) Description 08/02/2002 Outpatient Historical [facility] CARD NETWORK SUPPORT TECHNICIAN Jg Baer MD [facility] S [facility] [address] [place] [address] Megan Palma MD CORON ATHEROSCL YOMBA SHOSHONE CORON VESSEL (Primary Dx) Social History Tobacco Use Types Packs/Day Years Used Date Smoking Tobacco: Never Assessed Sex and Gender Information Value Date Recorded Sex Assigned at Not on file 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
--- OUTSIDE RECORDS SUMMARY | 2024-09-24 14:41 | XMS_ITS | Encounter Summary ---
Author Organization [facility] Address [address] [place] [address] Care Team Providers Care Transcripter Name Role Phone Perez Petit MD Primary Care Provider Encounter Details Date Type Department Care Team (Latest Contact Info) Description 08/03/2008 Outpatient Historical [facility] Ronn Singh MD [facility] [address] [facility] [address] [place] [address] Unspecified Chest Pain Social History Tobacco Use Types Packs/Day Years Used Date Smoking Tobacco: Former Cigarettes Q uit: 07/26/1978 Alcohol Use Standard Drinks/Week Comments Yes 0 (1 standard drink = 0.6 oz pur e alcohol) Sex and Gender Information Value Date Recorded Sex Assigned at Not on file 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 [place], [place] [address] Admit Date: 08/03/2008 KAL BERNAL Sex: M Admit Prov: RONN SINGH Date: 1945 Primary Care Prov: PEREZ PETIT CMRN: [id number] Room: [facility] SSN: [id number] IMAGING SERVICES Ordering Prov: N/A Interpretation Date [...] the patient was injected intravenously with 41.9 [id number] tetrofosmin and exercise was continued for 2 [...] unspecified documented in this encounter Care Teams Transcripter Relationship Specialty Start Date End Date Perez Petit MD [address] [place] [address] PCP - General 08/02/02 documented as of this encounter
--- OUTSIDE RECORDS SUMMARY | 2024-09-24 14:41 | XMS_ITS | Encounter Summary ---
Author Organization [facility] Address [address] [place] [address] Phone Care Team Providers Care Counterintelligence Agent Name Role Phone Jose Roland DO Primary Care Provider Encounter Details Date Type Department Care Team (Late st Contact Info) Description 02/13/2022 Telephone [facility] [address] [facility] 6[address] [place] [address] [place] [address] [place] Social History Tobacco Use Types Packs/Day Years Used Date Smoking Tobacco: Former Cigarettes Q uit: 09/25/1976 Smokeless Tobacco: Never Alcohol Use Standard Drinks/Week Comments Yes 12 (1 standard drink = 0.6 oz pu re alcohol) Sex and Gender Information Value Date Recorded Sex Assigned at Not on file 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
--- OUTSIDE RECORDS SUMMARY | 2024-09-24 14:41 | XMS_ITS | Encounter Summary ---
Author Organization [facility] Address 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
[2024-09-24 14:51] LABS: Add Urine Microscopic? YES; Appearance Urine Clear (Clear); Glucose Urine UA 3+ mg/dL (Negative); Leukocyte Esterase Ur Trace LEU/UL (Negative); Need Manual Microscopic Reviewed; Nitrate Urine Negative (Negative); Non Pathogenic Casts 0-2; Specific Grav Ur 1.036 (1.001-1.035)
--- NOTE | 2024-09-24 14:56 | ED_ITS ---
HPI - General Adult General Chief complaint: Urogenital-Male Stated complaint: male Time Seen by Provider: 09/24/24 13:06 History of Present Illness HPI narrative: This is an 78-year-old male presenting for urinary symptoms. Patient's has severe dementia and is unsure why his in the emergency department. The patient's has noticed that his head of his penis is quite red. She also noticed some yellowish discharge from the urethra. When questioned directly the patient does say that he has some pain on urination. Related Data Home Medications ?Medication ?Instructions ?Recorded ?Confirmed ?Last Taken ?Type psyllium husk 0.4 gram capsule 1.2 g PO BID 08/31/20 05/06/24 Unknown History (Daily Fiber) apixaban 5 mg tablet (Eliquis) 5 mg PO BID 03/27/21 05/06/24 Unknown History atorvastatin 80 mg tablet 80 mg PO DAILY 06/18/22 05/06/24 Unknown History trazodone 50 mg tablet 50 mg PO QHS PRN Insomnia 07/30/22 05/06/24 Unknown History multivitamin 1 tablet PO DAILY 08/26/23 05/06/24 Unknown History lactobacillus combination no.8 3 1 cell PO DAILY 10/08/23 05/06/24 Unknown History billion cell capsule valsartan 80 mg tablet (Diovan) 1,000 mg PO BID 05/06/24 05/06/24 Unknown History carvedilol 3.125 mg tablet 6.25 mg PO Q12H 09/08/24 Unknown History Allergies Allergy/AdvReac Type Severity Reaction Status Date / Time amoxicillin Allergy Mild Rash Verified 05/06/24 08:54 [facility] Past Medical History Medical History COVID-19 Rib fracture Arm fracture, left Arthritis UTI (urinary tract infection) Rectal polyp Stomach ulcer Hyperlipidemia HTN (hypertension) CAD (coronary artery disease) History of angina Afib Surgical History Surgical History History of cardiac catheterization Hx of CABG History of sinus surgery Family History Family History Mother Heart disease Father COPD (chronic obstructive pulmonary disease) Asthma Sibling Cancer Sibling Heart disease Sibling COPD (chronic obstructive pulmonary disease) Social History Social History Smoking packs per day: 0.25 Smoking cigarettes per day: 5.0 Years smoked: 7 Smoking pack-years: 1.75 Smoking status: Former smoker Tobacco type: cigarettes Smoking end date: 08/11/79 Alcohol intake: current Drinks per week: 3 Alcohol use details: beer- 3 cans once or twice a week Substance use: never Substance use type: does not use Lack of Transportation: No Lack of Food: Never True Current Housing: I Have Housing Concerned About Future Housing: No Difficulty Paying Gas/Electric Bills: No Difficulty Paying for Meds: No Currently Unemployed: No Education: High School Diploma/GED Difficulty w/ Childcare or Family Care: No Living arrangements: with family Additional living arrangements comments: Occupation/Education: retired Gender identity (if verbalized by the patient): Male Sexual Orientation (if Verbalized by the Patient): Straight or Heterosexual Spiritual care concerns: No Exam Narrative: APPEARANCE: No apparent distress. Head: atraumatic. EYES: EOMI, NOSE: Atraumatic NECK: Trachea midline RESPIRATORY: No increased rate of breathing CARDIOVASCULAR: RRR, ABDOMINAL: Non-distended MUSCULOSKELETAl: No obvious deformities exam: Erythema of the glans of the penis, no white clumps or yeast NEURO: Alert. Moving 4/4 extremities SKIN:: Warm, dry. Normal color PSYCHIATRIC: Normal affect Course Vital Signs Vital signs: Vital Signs Temperature 98.0 F 09/24/24 12:42 Pulse Rate 68 09/24/24 12:42 Respiratory Rate 16 09/24/24 12:42 Blood Pressure 151/68 H 09/24/24 12:42 Pulse Oximetry 97 09/24/24 12:42 Oxygen Delivery Room Air 09/24/24 12:42 Temperature 98.0 F 09/24/24 12:42 Pulse Rate 68 09/24/24 12:42 Respiratory Rate 16 09/24/24 12:42 Blood Pressure 151/68 H 09/24/24 12:42 Pulse Oximetry 97 09/24/24 12:42 Oxygen Delivery Room Air 09/24/24 12:42 Medical Decision Making MDM Narrative Medical decision making narrative: -Course: 78-year-old male presenting with redness the glans was penis. Physical exam shows balanitis. No clumps of yeast on exam Patient will be treated with triple antibiotic ointment. Urine is indicative infection of the treat of Keflex. Family educated on proper hygiene. Given Urology follow-up return precautions. -DDX includes but is not limited to: Balanitis, phimosis, UTI Vital Signs Vital Signs: Vital Signs Temperature 98.0 F 09/24/24 12:42 Pulse Rate 68 09/24/24 12:42 Respiratory Rate 16 09/24/24 12:42 Blood Pressure 151/68 H 09/24/24 12:42 Pulse Oximetry 97 09/24/24 12:42 Oxygen Delivery Room Air 09/24/24 12:42 Temperature 98.0 F 09/24/24 12:42 Pulse Rate 68 09/24/24 12:42 Respiratory Rate 16 09/24/24 12:42 Blood Pressure 151/68 H 09/24/24 12:42 Pulse Oximetry 97 09/24/24 12:42 Oxygen Delivery Room Air 09/24/24 12:42 Lab Data Labs: Lab Results 09/24/24 Range/Units 14:28 Urine Color Yellow (Yellow) Urine Appearance Clear (Clear) Urine pH 6.0 (5.0-9.0) Ur Specific [place] 1.036 H (1.001-1.035) Urine Protein Negative (Negative) mg/dL Urine Glucose (UA) 3+ H (Negative) mg/dL Urine Ketones Negative (Negative) mg/dL Ur Blood (Man) Trace (Negative) Urine Nitrate Negative (Negative) Urine Bilirubin Negative (Negative) Urine Urobilinogen 0.2 (<2.0) mg/dL Add Ur Microanalysis Reviewed Leukocyte Esterase Rfl Trace H (Negative) CARLOS/UL Urine RBC 3-5 H (0-2) /hpf Urine WBC 21-50 H (0-3) /hpf Ur Squamous Epith Cells None seen (Few) /hpf Urine Bacteria None seen /hpf Urine Casts 0-2 Discharge Plan Discharge Clinical Impression: Balanitis, Acute UTI Patient Disposition: Home Condition: Stable Instructions: Antibiotic Form, Urinary Tract Infection in Men (ED), Balanitis (ED) Additional Instructions: You were seen in the emergency department for balanitis and a urinary tract infection. Please make sure that your withdrawing the foreskin and cleaning the head of his penis once daily. Then apply triple antibiotic ointment. Please complete a course of Keflex. Please follow-up with urologist listed below for further management. Patient Language: Beninese Prescriptions: New Triple Antibiotic 3.5mg-400 unit- 5,000 unit/gram ointment 1 applic topical DAILY Qty: 14 0RF cephalexin 500 mg capsule 500 mg PO Q12H Qty: 10 0RF No Action oseltamivir [Tamiflu] 75 mg capsule 75 mg PO Q12H 5 Days Qty: 10 0RF prednisone 50 mg tablet 50 mg PO DAILY Qty: 4 0RF albuterol sulfate [Ventolin HFA] 90 mcg/actuation HFA aerosol inhaler 2 puff inhalation QID PRN (Reason: shortness of breath or wheezing) Qty: 8.5 0RF psyllium husk [Daily Fiber] 0.4 gram capsule 1.2 g PO BID Eliquis 5 mg tablet 5 mg PO BID atorvastatin 80 mg tablet 80 mg PO DAILY carvedilol 3.125 mg tablet 6.25 mg PO Q12H Rx Instructions: must administer with a meal/food Jardiance 10 mg tablet 10 mg PO QAM Qty: 30 0RF Jardiance 25 mg tablet 25 mg PO QAM Qty: 90 3RF Rx Instructions: Start taking after 10mg has been taken for 30 days donepezil 10 mg tablet 10 mg PO QAM Qty: 90 1RF valsartan [Diovan] 80 mg tablet 1,000 mg PO BID trazodone 50 mg tablet 50 mg PO QHS PRN (Reason: Insomnia) multivitamin Tablet 1 tablet PO DAILY lactobacillus combination no.8 3 billion cell Capsule 1 cell PO DAILY nitroglycerin 0.4 mg tablet, sublingual 0.4 mg sublingual Q5M PRN (Reason: chest pain) Qty: 30 1RF Rx Instructions: do not exceed 3 doses per episode ferrous sulfate 325 mg (65 mg iron) tablet 325 mg PO DAILY Qty: 90 1RF mecobalamin (vitamin B12) 1,000 mcg tablet,chewable 2,000 mcg PO DAILY Qty: 180 1RF tamsulosin [Flomax] 0.4 mg capsule 0.4 mg PO DAILY Qty: 90 1RF memantine 10 mg tablet See Rx Instructions .ROUTE .COMPLEX Qty: 180 0RF Dose Instruction: TAKE 1 TABLET BY MOUTH TWICE DAILY Rx Instructions: TAKE 1 TABLET BY MOUTH TWICE DAILY pantoprazole 20 mg tablet,delayed release (DR/EC) See Rx Instructions .ROUTE .COMPLEX Qty: 90 0RF Dose Instruction: TAKE 1 TABLET BY MOUTH EVERY MORNING Rx Instructions: TAKE 1 TABLET BY MOUTH EVERY MORNING Follow-up/Referrals: Olvin Duran MD [Physician[facility] Reginald Hook MD [Primary Care Provider] -
== END 2024-09-24 15:11 | disposition home or self-care (01) ==
PROVIDERS: Emergency Provider Emergency Medicine; PCP Family Medicine
DX: N39.0 Urinary tract infection, site not specified (principal); N48.1 Balanitis; F03.C0 Unspecified dementia, severe, without behavioral disturbance, psychotic disturbance, mood disturbance, and anxiety; I10 Essential (primary) hypertension; I25.10 Atherosclerotic heart disease of native coronary artery without angina pectoris; I48.91 Unspecified atrial fibrillation; E78.5 Hyperlipidemia, unspecified; M19.90 Unspecified osteoarthritis, unspecified site; Z95.1 Presence of aortocoronary bypass graft; Z86.0100 Personal history of colon polyps, unspecified; Z86.16 Personal history of COVID-19; Z87.891 Personal history of nicotine dependence; Z79.84 Long term (current) use of oral hypoglycemic drugs; Z79.899 Other long term (current) drug therapy; Z79.01 Long term (current) use of anticoagulants
CPT/HCPCS: 81001; 87086; 99283

== ENCOUNTER 2024-10-31 08:06 | Emergency (ER) | payer OTHER, SELFPAY ==
--- NOTE | 2024-10-31 08:09 | ED.GENADULT ---
HPI - General Adult General Chief complaint: Urogenital-Male Stated complaint: rash on leg/urinary irritation Time Seen by Provider: 10/31/24 08:09 Source: patient Mode of arrival: ambulatory Limitations: no limitations History of Present Illness HPI narrative: 79-year-old male patient presents to the [facility] accompanied by his . Patient does have history of dementia. For the last 2-3 days patient has been complaining of urinary pain and frequency. Patient was seen in the ER last month for swelling and redness of the head of the penis and was given a cream. Patient has normal urologist has recently retired and they have not been referred to a new urologist. Patient's denies any fevers body aches or chills but states that she has noticed an increase in his confusion and the last couple of days. Patient also states he has had a rash to the bilateral lower anterior aspects of the legs that started about 1-2 days ago. Patient states that they are very itchy. Patient does have a history of type 2 diabetes in his history however his states that he is no longer been treated for this because he has been told that his lab work looks fine. Upon review of old labs his last A1c was 8.1 and it appears that they did start him on Jardiance last month. Related Data Home Medications ?Medication ?Instructions ?Recorded ?Confirmed ?Last Taken ?Type apixaban 5 mg tablet (Eliquis) 5 mg PO BID 03/27/21 10/31/24 Unknown History atorvastatin 80 mg tablet 80 mg PO DAILY 06/18/22 10/31/24 Unknown History trazodone 50 mg tablet 50 mg PO QHS PRN Insomnia 07/30/22 10/31/24 Unknown History multivitamin 1 tablet PO DAILY 08/26/23 10/31/24 Unknown History lactobacillus combination no.8 3 1 cell PO DAILY 10/08/23 10/31/24 Unknown History billion cell capsule valsartan 80 mg tablet (Diovan) 1,000 mg PO BID 05/06/24 10/31/24 Unknown History carvedilol 3.125 mg tablet 6.25 mg PO Q12H 09/08/24 10/31/24 Unknown History psyllium husk 0.4 gram capsule 2 g PO BID 10/01/24 10/31/24 Unknown History (Daily Fiber) vibegron 75 mg tablet (Gemtesa) 75 mg PO DAILY 10/01/24 10/31/24 Unknown History Allergies Allergy/AdvReac Type Severity Reaction Status Date / Time amoxicillin Allergy Mild Rash Verified 10/31/24 08:11 Review of Systems Review of Systems: CONSTITUTIONAL: Denies fever, chills, or sweats. EYES: Denies visual changes, redness, or discharge. ENT: Denies rhinorrhea, congestion, sore throat, or otalgia. CARDIOVASCULAR: Denies chest pain, palpitations, or edema. RESPIRATORY: Denies cough or dyspnea. GASTROINTESTINAL: Denies abdominal pain, nausea, vomiting, or diarrhea. GENITOURINARY: Positive dysuria, denies gross hematuria. SKIN: Denies rash or itching. MUSCULOSKELETAL: Denies back pain, joint pain, or myalgia. NEUROLOGIC: Denies headache, numbness, or weakness. PSYCHIATRIC: Denies anxiety or depression. [facility] Past Medical History Medical History (Updated 10/31/24 @ 09:35 by SUYAPA Calix) Elevated hemoglobin A1c Orthostatic hypotension Type 2 diabetes mellitus Hyperglycemia Mild cognitive impairment Ureteral calculus Iron deficiency Vitamin B12 deficiency COVID-19 Rib fracture Arm fracture, left Arthritis UTI (urinary tract infection) Rectal polyp Stomach ulcer Hyperlipidemia HTN (hypertension) CAD (coronary artery disease) History of angina Afib Surgical History Surgical History History of cardiac catheterization Hx of CABG History of sinus surgery Family History Family History Mother Heart disease Father COPD (chronic obstructive pulmonary disease) Asthma Sibling Cancer Sibling Heart disease Sibling COPD (chronic obstructive pulmonary disease) Social History Social History Smoking packs per day: 0.25 Smoking cigarettes per day: 5.0 Years smoked: 7 Smoking pack-years: 1.75 Smoking status: Former smoker Tobacco type: cigarettes Smoking end date: 08/11/79 Alcohol intake: current Drinks per week: 3 Alcohol use details: beer- 3 cans once or twice a week Substance use: never Substance use type: does not use Lack of Transportation: No Lack of Food: Never True Current Housing: I Have Housing Concerned About Future Housing: No Difficulty Paying Gas/Electric Bills: No Difficulty Paying for Meds: No Currently Unemployed: No Education: High School Diploma/GED Difficulty w/ Childcare or Family Care: No Living arrangements: with family Additional living arrangements comments: Occupation/Education: retired Gender identity (if verbalized by the patient): Male Sexual Orientation (if Verbalized by the Patient): Straight or Heterosexual Spiritual care concerns: No Comments At the time of my signature I agree with nursing past medical history, surgical, social, and family history. There is no relevant family history pertinent to the presenting complaint. Exam Narrative: GENERAL: Well-appearing, well-nourished, and in no acute distress. Does not appear toxic looking HEAD: Normocephalic, atraumatic. EYES: PERRLA and EOMI. ENT: Nares clear, no rhinorrhea or epistaxis. Mucous membranes moist. Posterior pharynx with no erythema, tonsillar enlargement, exudates or lesions present. Bilateral TMs are clear no erythema or foreign bodies the canal. NECK: Supple. No lymphadenopathy CHEST: Clear to auscultation. No respiratory distress. HEART: Regular rate and rhythm. No murmur heard. Normal peripheral pulses. ABDOMEN: Soft, nontender, nondistended, normal active bowel sounds. : Normal external genitalia, circumcised male. No lesions or rash present. Urinary meatus with erythema and swelling noted to the head of the penis. Foreskin does not retracts easily. EXTREMITIES: Normal range of motion. No edema. SKIN: Warm, dry, no rash. NEURO: No focal deficits. Alert and oriented x3. Patient does have history of dementia Course Course Level of Care: Express Care Visit Reevaluation(s) Reevaluation #1: After administration of the IM Rocephin no allergic reaction is noted. Patient continues to walk around without any issues denies any rash. We will go ahead and discharge patient home with his foot with a prescription of cephalexin for the UTI symptoms and encouraged to call his primary doctor tomorrow morning to be seen as well as call the urologist that was referred to him today for an appointment however if symptoms are not improving or getting worse in the next 1-2 days highly recommend they take him to to the ER for further evaluation treatment. Date: 10/31/24 Time: 09:57 Vital Signs Vital signs: Vital Signs Temperature 36.6 C 10/31/24 08:16 Pulse Rate 78 10/31/24 08:16 Respiratory Rate 16 10/31/24 08:16 Blood Pressure 140/59 L 10/31/24 08:16 Pulse Oximetry 97 10/31/24 08:16 Oxygen Delivery Room Air 10/31/24 08:16 Temperature 36.8 C 10/31/24 08:19 Pulse Rate 80 10/31/24 08:19 Respiratory Rate 20 10/31/24 08:19 Blood Pressure 112/70 10/31/24 08:19 Pulse Oximetry 100 10/31/24 08:19 Oxygen Delivery Room Air 10/31/24 08:19 Vital signs reviewed. The patient has been informed that they may have pre-hypertension or Hypertension based on a BP reading in the department. I recommend that the patient call the primary care provider listed on their discharge instructions or a physician of their choice this week to arrange follow up for further evaluation of possible pre-hypertension or Hypertension Medical Decision Making MDM Narrative Medical decision making narrative: Blood sugar was checked on patient today and blood sugar was in the 300s as well as it was noted on his urine dip that there was 2+ glucose. Discussed with patient's that his blood sugars not being well controlled which can affect how he is healing from these infections or possibly causing additional infections. Discussed with the that it is imperative that they get his blood sugar under control and highly recommend that they call his primary doctor tomorrow and get in to be seen about the blood sugar issue. Discussed with the that I did not see any evidence of the UTI on the urine dip however given his symptoms and risk factors I would like to go ahead and treat him for a possible UTI today. Discussed with them that the rash on the anterior legs is most likely a contact dermatitis that they can treat with [id number] hydrocortisone cream and take antihistamines to help with the itching. Given his complicated medical history and allergies I did call and consult with Dr. Roldan about a treatment plan. The plan today is to give him 1 g of ceftriaxone IM in the clinic today and assess if he has a reaction. If no reaction will most likely discharge home with Keflex for the UTI and have him follow up with [place] urologist that we are going to refer him today for the UTI issue as well as the balantitis. Discussed in-depth with the patient's that if patient does not show any improvement in the next 1-2 days they need to take him to the ER for further evaluation. Discussed with her risk factors for urosepsis and concerns for this and older patients especially ones with dementia. Patient is aware the plan of care at this time. Differential Diagnosis Differential Diagnosis: Differential diagnosis: Uncomplicated lower UTI, uncomplicated UTI, polynephritis, penile trauma,balanoposthitis, phimosis, paraphimosis, testicular torsion, epididymitis, prostatitis, varicocele, spermatocele, hydrocele, hernia. Contact dermatitis, poison eva, poison sumac, psoriasis, eczema, allergic reaction, drug reaction, scabies, tinea syphilis, lung disease, viral exanthema, pityriasis, erythema multiforme. Vital Signs Vital Signs: Vital Signs Temperature 36.6 C 10/31/24 08:16 Pulse Rate 78 10/31/24 08:16 Respiratory Rate 16 10/31/24 08:16 Blood Pressure 140/59 L 10/31/24 08:16 Pulse Oximetry 97 10/31/24 08:16 Oxygen Delivery Room Air 10/31/24 08:16 Temperature 36.8 C 10/31/24 08:19 Pulse Rate 80 10/31/24 08:19 Respiratory Rate 20 10/31/24 08:19 Blood Pressure 112/70 10/31/24 08:19 Pulse Oximetry 100 10/31/24 08:19 Oxygen Delivery Room Air 10/31/24 08:19 Lab Data Labs: Lab Results 10/31/24 10/31/24 Range/Units 08:23 08:44 POC Capillary Glucose 304 H (65-105) mg/dl POC Urine Color Yellow POC Urine Clarity Clear POC Urine pH 5.5 POC Ur Specif Gregory 1.005 POC Urine Protein Negative (Negative) POC Ur Glucose (UA) 2+ (Negative) POC Urine Ketones Negative (Negative) POC Urine Blood Negative (Negative) POC Urine Nitrite Negative (Negative) POC Urine Bilirubin Negative (Negative) POC Urine Urobilinogen 0.2 POC U Leukocyte Esteras Negative (Negative) Critical Care Time Critical Care Time Critical Care Time: No Discharge Plan Discharge Clinical Impression: Urinary tract pain, Balanitis, Acute hyperglycemia Contact dermatitis Qualifiers: Contact dermatitis type: irritant Contact dermatitis trigger: unspecified trigger Qualified Code(s): L24.9 - Irritant contact dermatitis, unspecified cause Patient Disposition: Home Condition: Stable Instructions: Antibiotic Makenna, Thanh (ED) Additional Instructions: We will send a urine culture off to the lab; if the culture identifies an organism that the prescribed antibiotic will not treat, you will receive a phone call from an urgent care staff member and an appropriate antibiotic will be prescribed. -Your symptoms should begin to improve within a day of starting antibiotics. But you should finish all the antibiotic pills you get. Otherwise your infection might come back. -Also recommend: drink more fluid. It might help flush out germs, and it does no harm -Tylenol/ibuprofen prn for pain or fever -Follow-up with your primary care provider for urine recheck or seek ER visit if condition worsens with high fever, nausea, vomiting and severe back pain. Patient Language: Kuwaiti Prescriptions: New cephalexin 500 mg capsule 500 mg PO QID 7 Days Qty: 28 0RF No Action psyllium husk [Daily Fiber] 0.4 gram capsule 2 g PO BID Eliquis 5 mg tablet 5 mg PO BID atorvastatin 80 mg tablet 80 mg PO DAILY carvedilol 3.125 mg tablet 6.25 mg PO Q12H Rx Instructions: must administer with a meal/food Jardiance 10 mg tablet 10 mg PO QAM Qty: 30 0RF Jardiance 25 mg tablet 25 mg PO QAM Qty: 90 3RF Rx Instructions: Start taking after 10mg has been taken for 30 days donepezil 10 mg tablet 10 mg PO QAM Qty: 90 1RF valsartan [Diovan] 80 mg tablet 1,000 mg PO BID trazodone 50 mg tablet 50 mg PO QHS PRN (Reason: Insomnia) multivitamin Tablet 1 tablet PO DAILY Gemtesa 75 mg tablet 75 mg PO DAILY lactobacillus combination no.8 3 billion cell Capsule 1 cell PO DAILY nitroglycerin 0.4 mg tablet, sublingual 0.4 mg sublingual Q5M PRN (Reason: chest pain) Qty: 30 1RF Rx Instructions: do not exceed 3 doses per episode mecobalamin (vitamin B12) 1,000 mcg tablet,chewable 2,000 mcg PO DAILY Qty: 180 1RF tamsulosin [Flomax] 0.4 mg capsule 0.4 mg PO DAILY Qty: 90 1RF memantine 10 mg tablet See Rx Instructions .ROUTE .COMPLEX Qty: 180 0RF Dose Instruction: TAKE 1 TABLET BY MOUTH TWICE DAILY Rx Instructions: TAKE 1 TABLET BY MOUTH TWICE DAILY pantoprazole 20 mg tablet,delayed release (DR/EC) See Rx Instructions .ROUTE .COMPLEX Qty: 90 0RF Dose Instruction: TAKE 1 TABLET BY MOUTH EVERY MORNING Rx Instructions: TAKE 1 TABLET BY MOUTH EVERY MORNING Follow-up/Referrals: Reginald Hook MD [Primary Care Provider, Family Practice] Lino Prado MD [Physician, Urology] Time of Disposition: 09:56
[2024-10-31 08:16] VITALS: BP 140/59; PULSE 78; RESP 16; TEMP 36.6; O2SAT 97
[2024-10-31 08:19] VITALS: BP 112/70; PULSE 80; RESP 20; TEMP 36.8; O2SAT 100
[2024-10-31 08:29] LABS: EDUAAPPEAR Clear; EDUABILI Negative (Negative); EDUABLOOD Negative (Negative); EDUACOLOR1 Yellow; EDUAGLUCOSE 2+ (Negative); EDUAKETONE Negative (Negative); EDUALEUKO Negative (Negative); EDUANITRATE Negative (Negative); EDUAPH 5.5; EDUAPROTEIN Negative (Negative); EDUASPGRAVITY 1.005; EDUAUROBILI 0.2
[2024-10-31] MEDS: cefTRIAXone 1 GM, LIDOCAINE 1% LOCAL INJ 2.1 ML IM (09:30)
== END 2024-10-31 10:04 | disposition home or self-care (01) ==
PROVIDERS: Emergency Provider Nurse Practitioner Family; PCP Family Medicine
DX: R30.0 Dysuria (principal); N48.1 Balanitis; E11.65 Type 2 diabetes mellitus with hyperglycemia; Z79.84 Long term (current) use of oral hypoglycemic drugs; L24.9 Irritant contact dermatitis, unspecified cause; F03.90 Unspecified dementia, unspecified severity, without behavioral disturbance, psychotic disturbance, mood disturbance, and anxiety; I10 Essential (primary) hypertension; I25.110 Atherosclerotic heart disease of native coronary artery with unstable angina pectoris; I48.91 Unspecified atrial fibrillation; E78.5 Hyperlipidemia, unspecified; E53.8 Deficiency of other specified B group vitamins; Z79.01 Long term (current) use of anticoagulants; Z95.1 Presence of aortocoronary bypass graft; Z87.891 Personal history of nicotine dependence
CPT/HCPCS: 81003; 82948; 87086; 96372; 99213; G0463; J0696; J2003

== ENCOUNTER 2024-11-03 20:32 | Emergency (ER) | payer OTHER, SELFPAY ==
[2024-11-03 20:34] VITALS: BP 192/86; PULSE 68; RESP 20; TEMP 36.7; O2SAT 100
--- OUTSIDE RECORDS SUMMARY | 2024-11-03 20:34 | XMS_ITS | Encounter Summary ---
Author Organization [email or web address] Address 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
--- OUTSIDE RECORDS SUMMARY | 2024-11-03 20:34 | XMS_ITS | Encounter Summary ---
Author Organization [facility] Address [address] [place] [address] Phone Care Team Providers Care Fur Liner Name Role Phone Jose Roland DO Primary Care Provider [phone] Encounter Details Date Type Department Care Team (Late st Contact Info) Description 02/13/2022 Telephone [facility] [address] [place] [address] 6th [place] [address] [place] [id number] [place]ass[place] Social History Tobacco Use Types Packs/Day Years Used Date Smoking Tobacco: Former Cigarettes Q uit: 09/25/1976 Smokeless Tobacco: Never Alcohol Use Standard Drinks/Week Comments Yes 12 (1 standard drink = 0.6 oz pu re alcohol) Sex and Gender Information Value Date Recorded Sex Assigned at Not on file 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
--- OUTSIDE RECORDS SUMMARY | 2024-11-03 20:34 | XMS_ITS | Clinical Summary ---
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
--- OUTSIDE RECORDS SUMMARY | 2024-11-03 20:34 | XMS_ITS | Encounter Summary ---
Author Organization [facility] Address 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 Jg Baer MD [facility] [address] [place] [address] Megan Palma MD CORON ATHEROSCL [place] CORON VESSEL (Primary Dx) Social History Tobacco Use Types Packs/Day Years Used Date Smoking Tobacco: Never Assessed Sex and Gender Information Value Date Recorded Sex Assigned at Not on file 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
--- OUTSIDE RECORDS SUMMARY | 2024-11-03 20:34 | XMS_ITS | Encounter Summary ---
Author Organization [employer] [facility] Address [address] [place] [address] Care Team Providers Care Director Of Safety And Security Name Role Phone Perez Le MD Primary Care Provider Encounter Details Date Type Department Care Team (Late st Contact Info) Description 08/02/2002 [facility]patient [facility] [address] 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
--- OUTSIDE RECORDS SUMMARY | 2024-11-03 20:34 | XMS_ITS | Clinical Summary ---
Author Organization [facility] Address 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
[2024-11-03 21:12] VITALS: BP 140/79; PULSE 69; RESP 14; O2SAT 93
--- OUTSIDE RECORDS SUMMARY | 2024-11-03 21:12 | XMS_ITS | Encounter Summary ---
Author Organization [facility] Address [address] [place] [address] Phone Care Team Providers Care Project Administrative Assistant Name Role Phone Jose Roland DO Primary Care Provider [phone] Encounter Details Date Type Department Care Team (Late st Contact Info) Description 02/13/2022 Telephone [facility] [address] [place] [address] 6th [place] [address] [place] [phone] Kassi JacintoFORT [place] Social History Tobacco Use Types Packs/Day Years Used Date Smoking Tobacco: Former Cigarettes Q uit: 09/25/1976 Smokeless Tobacco: Never Alcohol Use Standard Drinks/Week Comments Yes 12 (1 standard drink = 0.6 oz pu re alcohol) Sex and Gender Information Value Date Recorded Sex Assigned at Not on file 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
--- OUTSIDE RECORDS SUMMARY | 2024-11-03 21:12 | XMS_ITS | Encounter Summary ---
Author Organization [facility] Address [address] [place] [address] Care Team Providers Care Boiler Service Technician Name Role Phone Perez Le MD Primary Care Provider [phone] Encounter Details Date Type Department Care Team (Latest Contact Info) Description 08/02/2002 Outpatient Historical HIS CARD ENTRY LEVEL SOFTWARE DEVELOPER Jg Baer MD [facility] [address] [place] [address] Megan Palma MD CORON ATHEROSCL [place] CORON VESSEL (Primary Dx) Social History Tobacco Use Types Packs/Day Years Used Date Smoking Tobacco: Never Assessed Sex and Gender Information Value Date Recorded Sex Assigned at Not on file 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
--- OUTSIDE RECORDS SUMMARY | 2024-11-03 21:12 | XMS_ITS | Clinical Summary ---
Author Organization [email or web address] Address 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
--- OUTSIDE RECORDS SUMMARY | 2024-11-03 21:13 | XMS_ITS | Encounter Summary ---
Author Organization [employer] Address [address] [place] [address] Care Team Providers Care Kitchen Stewardess Name Role Phone Perez Le MD Primary Care Provider [phone] Encounter Details Date Type Department Care Team (Late st Contact Info) Description 08/02/2002 Outpatient Historical [facility] ([facility]) [address] 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
--- OUTSIDE RECORDS SUMMARY | 2024-11-03 21:13 | XMS_ITS | Encounter Summary ---
Author Organization [facility] Address 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
--- OUTSIDE RECORDS SUMMARY | 2024-11-03 21:13 | XMS_ITS | Clinical Summary ---
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
[2024-11-03 21:32] LABS: Add Urine Microscopic? YES; Appearance Urine Cloudy (Clear); Glucose Urine UA 3+ mg/dL (Negative); Leukocyte Esterase Ur Negative LEU/UL (Negative); Nitrate Urine Negative (Negative); Non Pathogenic Casts 0-2; Specific Grav Ur 1.034 (1.001-1.035)
--- NOTE | 2024-11-03 22:47 | ED.MALEGU ---
HPI - Male Genitourinary General Chief complaint: Urogenital-Male Stated complaint: penile pain Time Seen by Provider: 11/03/24 20:57 History of Present Illness HPI Narrative: 79-year-old male presenting to the emergency department with penile pain. He states he has been having some irritation and difficulty retracting his foreskin. He has a history of balanitis previously responsive to triple antibiotic ointment. He has a urology appointment tomorrow morning according his at bedside. Patient has a history of events dementia and Alzheimer's. No difficulty urinating and no hematuria that he has reported but he states that it does burn to P when he tries to retract his foreskin. History of kidney stones but no flank pain or abdominal pain no fever chills. Was otherwise in his normal state of health. Ambulatory without difficulties and no systemic symptoms at this time. Related Data Home Medications ?Medication ?Instructions ?Recorded ?Confirmed ?Last Taken ?Type apixaban 5 mg tablet (Eliquis) 5 mg PO BID 03/27/21 10/31/24 Unknown History atorvastatin 80 mg tablet 80 mg PO DAILY 06/18/22 10/31/24 Unknown History trazodone 50 mg tablet 50 mg PO QHS PRN Insomnia 07/30/22 10/31/24 Unknown History multivitamin 1 tablet PO DAILY 08/26/23 10/31/24 Unknown History lactobacillus combination no.8 3 1 cell PO DAILY 10/08/23 10/31/24 Unknown History billion cell capsule valsartan 80 mg tablet (Diovan) 1,000 mg PO BID 05/06/24 10/31/24 Unknown History carvedilol 3.125 mg tablet 6.25 mg PO Q12H 09/08/24 10/31/24 Unknown History psyllium husk 0.4 gram capsule 2 g PO BID 10/01/24 10/31/24 Unknown History (Daily Fiber) vibegron 75 mg tablet (Gemtesa) 75 mg PO DAILY 10/01/24 10/31/24 Unknown History Allergies Allergy/AdvReac Type Severity Reaction Status Date / Time amoxicillin Allergy Mild Rash Verified 11/01/24 15:11 Review of Systems Review of Systems: As reviewed above in HPI [facility] Past Medical History Medical History Elevated hemoglobin A1c Orthostatic hypotension Type 2 diabetes mellitus Hyperglycemia Mild cognitive impairment Ureteral calculus Iron deficiency Vitamin B12 deficiency COVID-19 Rib fracture Arm fracture, left Arthritis UTI (urinary tract infection) Rectal polyp Stomach ulcer Hyperlipidemia HTN (hypertension) CAD (coronary artery disease) History of angina Afib Surgical History Surgical History History of cardiac catheterization Hx of CABG History of sinus surgery Family History Family History Mother Heart disease Father COPD (chronic obstructive pulmonary disease) Asthma Sibling Cancer Sibling Heart disease Sibling COPD (chronic obstructive pulmonary disease) Social History Social History Smoking packs per day: 0.25 Smoking cigarettes per day: 5.0 Years smoked: 7 Smoking pack-years: 1.75 Smoking status: Former smoker Tobacco type: cigarettes Smoking end date: 08/11/79 Alcohol intake: current Drinks per week: 3 Alcohol use details: beer- 3 cans once or twice a week Substance use: never Substance use type: does not use Lack of Transportation: No Lack of Food: Never True Current Housing: I Have Housing Concerned About Future Housing: No Difficulty Paying Gas/Electric Bills: No Difficulty Paying for Meds: No Currently Unemployed: No Education: High School Diploma/GED Difficulty w/ Childcare or Family Care: No Living arrangements: with family Additional living arrangements comments: Occupation/Education: retired Gender identity (if verbalized by the patient): Male Sexual Orientation (if Verbalized by the Patient): Straight or Heterosexual Spiritual care concerns: No Exam Narrative: GENERAL: [Well-appearing, well-nourished, and in no acute distress.] HEAD: [Normocephalic, atraumatic.] EYES: [PERRLA and EOMI.] ENT: Nares clear, no rhinorrhea or epistaxis. Mucous membranes moist. NECK: Supple. CHEST: [Clear to auscultation. No respiratory distress.] HEART: [Regular rate and rhythm]. No murmur heard. [Normal peripheral pulses.] ABDOMEN: [Soft, nondistended], [nontender], [No rigidity or guarding] : Chaperoned physical examination of the system reveals balanoposthitis with difficulty retracting the foreskin but able to successfully retract and visualized creamy discharge from the glans. Able to be replaced with no paraphimosis. Mild phimosis is evident. No pain with palpation. No testicular abnormalities. EXTREMITIES: Normal range of motion. [No edema.] SKIN: Warm, dry, no rash. NEURO: [No focal deficits]. Alert and oriented [x3.] PSYCH: [Normal mood and affect.] Course Vital Signs Vital signs: Vital Signs Temperature 36.7 C 11/03/24 20:34 Pulse Rate 68 11/03/24 20:34 Respiratory Rate 20 11/03/24 20:34 Blood Pressure 192/86 H 11/03/24 20:34 Pulse Oximetry 100 11/03/24 20:34 Temperature 36.6 C 11/03/24 23:03 Pulse Rate 72 11/03/24 23:03 Respiratory Rate 16 11/03/24 23:03 Blood Pressure 165/83 H 11/03/24 23:03 Pulse Oximetry 98 11/03/24 23:03 MDM - Male Genitourinary MDM Narrative Medical decision making narrative: 79-year-old male presenting to the emergency department with penile pain. He states he has been having some irritation and difficulty retracting his foreskin. He has a history of balanitis previously responsive to triple antibiotic ointment. He has a urology appointment tomorrow morning according his at bedside. Patient has a history of events dementia and Alzheimer's. No difficulty urinating and no hematuria that he has reported but he states that it does burn to P when he tries to retract his foreskin. History of kidney stones but no flank pain or abdominal pain no fever chills. Was otherwise in his normal state of health. Ambulatory without difficulties and no systemic symptoms at this time. Chaperoned physical examination of the system reveals balanoposthitis with difficulty retracting the foreskin but able to successfully retract and visualized creamy discharge from the glans. Able to be replaced with no paraphimosis. Mild phimosis is evident. No pain with palpation. No testicular abnormalities. Patient is hemodynamically stable reassuring vitals. Will be started on clotrimazole in triple antibiotic ointment and urine he has urology appointment tomorrow morning which his family will take him to. Medical Records Attestation: I reviewed the patient's medical records. Lab Data Attestation: I reviewed the patient's lab results. Labs: Lab Results 11/03/24 Range/Units 21:24 Urine Color Yellow (Yellow) Urine Appearance Cloudy H (Clear) Urine pH 6.0 (5.0-9.0) Ur Specific [place] 1.034 (1.001-1.035) Urine Protein Negative (Negative) mg/dL Urine Glucose (UA) 3+ H (Negative) mg/dL Urine Ketones Negative (Negative) mg/dL Ur Blood (Man) 2+ H (Negative) Urine Nitrate Negative (Negative) Urine Bilirubin Negative (Negative) Urine Urobilinogen 0.2 (<2.0) mg/dL Leukocyte Esterase Rfl Negative (Negative) CARLOS/UL Urine RBC 21-50 H (0-2) /hpf Urine WBC 0-5 (0-3) /hpf Ur Squamous Epith Cells None seen (Few) /hpf Urine Bacteria None seen /hpf Urine Casts 0-2 Discharge Plan Discharge Clinical Impression: Balanoposthitis Patient Disposition: Home Condition: Stable Instructions: Antibiotic Form, Balanoposthitis (ED) Additional Instructions: Take the 2 antibiotic and antifungal creams and apply them to the penis as directed on the prescription. Follow-up with urologist tomorrow for definitive care. Return with any emergent concerns. Patient Language: French Prescriptions: New clotrimazole [Antifungal (clotrimazole)] 1 % cream 1 applic topical BID 14 Days Qty: 15 0RF Triple Antibiotic 3.5mg-400 unit- 5,000 unit/gram ointment 1 applic topical QID Qty: 15 0RF No Action cephalexin 500 mg capsule 500 mg PO QID 7 Days Qty: 28 0RF psyllium husk [Daily Fiber] 0.4 gram capsule 2 g PO BID Eliquis 5 mg tablet 5 mg PO BID atorvastatin 80 mg tablet 80 mg PO DAILY carvedilol 3.125 mg tablet 6.25 mg PO Q12H Rx Instructions: must administer with a meal/food donepezil 10 mg tablet 10 mg PO QAM Qty: 90 1RF valsartan [Diovan] 80 mg tablet 1,000 mg PO BID trazodone 50 mg tablet 50 mg PO QHS PRN (Reason: Insomnia) multivitamin Tablet 1 tablet PO DAILY Gemtesa 75 mg tablet 75 mg PO DAILY (DME) FreeStyle Gianni 3 Plus Sensor Device See Rx Instructions .Route Qty: 2 2RF Rx Instructions: As directed (DME) FreeStyle Gianni 3 [place] Misc See Rx Instructions .Route Qty: 1 0RF Rx Instructions: As directed Jardiance 25 mg tablet 25 mg PO QAM Qty: 90 3RF lactobacillus combination no.8 3 billion cell Capsule 1 cell PO DAILY nitroglycerin 0.4 mg tablet, sublingual 0.4 mg sublingual Q5M PRN (Reason: chest pain) Qty: 30 1RF Rx Instructions: do not exceed 3 doses per episode mecobalamin (vitamin B12) 1,000 mcg tablet,chewable 2,000 mcg PO DAILY Qty: 180 1RF tamsulosin [Flomax] 0.4 mg capsule 0.4 mg PO DAILY Qty: 90 1RF memantine 10 mg tablet See Rx Instructions .ROUTE .COMPLEX Qty: 180 0RF Dose Instruction: TAKE 1 TABLET BY MOUTH TWICE DAILY Rx Instructions: TAKE 1 TABLET BY MOUTH TWICE DAILY pantoprazole 20 mg tablet,delayed release (DR/EC) See Rx Instructions .ROUTE .COMPLEX Qty: 90 0RF Dose Instruction: TAKE 1 TABLET BY MOUTH EVERY MORNING Rx Instructions: TAKE 1 TABLET BY MOUTH EVERY MORNING Follow-up/Referrals: Reginald Hook MD [Primary Care Provider, Family Practice] Time of Disposition: 22:51
--- NOTE | 2024-11-03 22:50 | PC.NURSE ---
Pt. foreskin is red and inflamed. Painful when foreskin pulled back by Dr. Dixon.
[2024-11-03 23:03] VITALS: BP 165/83; PULSE 72; RESP 16; TEMP 36.6; O2SAT 98
[2024-11-03] MEDS: MICONAZOLE NITRATE 2% CREAM 30 GM TUBE 1 APPLIC TOPICAL (23:12)
[2024-11-03] MEDS: NEOMYCIN/POLYMYXIN/BACITRACIN OINTMENT 15 GM TUBE 1 APPLIC TOPICAL (23:12)
== END 2024-11-03 23:17 | disposition home or self-care (01) ==
PROVIDERS: Emergency Provider Student in an Organized Health Care Education/Training Program; PCP Family Medicine
DX: N47.6 Balanoposthitis (principal); I10 Essential (primary) hypertension; I48.91 Unspecified atrial fibrillation; I25.119 Atherosclerotic heart disease of native coronary artery with unspecified angina pectoris; E11.9 Type 2 diabetes mellitus without complications; E78.5 Hyperlipidemia, unspecified; E61.1 Iron deficiency; E53.8 Deficiency of other specified B group vitamins; M19.90 Unspecified osteoarthritis, unspecified site; Z95.1 Presence of aortocoronary bypass graft; Z86.0100 Personal history of colon polyps, unspecified; Z87.440 Personal history of urinary (tract) infections; Z86.16 Personal history of COVID-19; Z87.442 Personal history of urinary calculi; Z87.891 Personal history of nicotine dependence; Z79.01 Long term (current) use of anticoagulants; Z79.899 Other long term (current) drug therapy; Z79.84 Long term (current) use of oral hypoglycemic drugs
CPT/HCPCS: 81001; 99283; A9270